=== PATIENT | female | born 1970 | race Caucasian/White ===

== ENCOUNTER 2019-01-02 00:38 | Outpatient (CLI) | payer BC, SELFPAY ==
--- NOTE | 2019-01-02 14:40 | DI.MAMMO_ITS ---
SYMPTOMS/DIAGNOSIS: SCREENING, Z12.31 MAMMOGRAMS: Mammograms were interpreted according to the usual protocol including computer analysis with CAD system, tomosynthesis and C view imaging. The breasts are heterogeneously dense. No dominant mass or clumped microcalcification is identified in either breast. Current examination is compared with the previous examinations including December 2017 and there has been no gross interval change in appearance in comparison with the previous studies. CONCLUSION: No specific evidence of malignancy at this time. Routine screening examinations are suggested at yearly intervals due to the family history of breast carcinoma. Category 1, breast density category C. MQSA ASSESSMENT OF FINDINGS: Negative. Category 1. Patient will receive a letter notifying them of these results. Bi-RADS category C. The breasts are heterogeneously dense, which may obscure small masses.
== END 2019-01-02 00:58 ==
PROVIDERS: PCP Family Medicine; Visit Provider Nurse Practitioner Family
DX: Z12.31 Encounter for screening mammogram for malignant neoplasm of breast (principal); Z80.3 Family history of malignant neoplasm of breast
CPT/HCPCS: 77063; 77067

== ENCOUNTER 2019-09-18 08:32 | Outpatient (REF) | payer BC, SELFPAY ==
[2019-09-18 13:31] LABS: ALT 15 U/L (14-59); AST 20 U/L (15-37); Albumin 3.3 g/dL (3.4-5.0); Alkaline Phosphatase 43 U/L (46-116); BUN 15 mg/dL (7-18); Bilirubin, Total 0.5 mg/dL (0.2-1.0); CREATININE 1.09 mg/dL (0.55-1.02); Calcium 8.7 mg/dL (8.5-10.1); Calculated LDL 126 mg/dL; Chloride 107 mmol/L (98-107); Cholesterol 173 mg/dL (<200); Estimated GFR 53.57 (mL/min/1.73m2); Glucose 96 mg/dL (74-106); HDL Cholesterol 36 mg/dL (40-60); Potassium 4.2 mmol/L (3.5-5.1); Sodium 143 mmol/L (136-145); Total Protein 6.8 g/dL (6.4-8.2); Triglyceride 59 mg/dL (<150)
== END 2019-09-18 08:52 ==
LOC: NCHCN 08:32
PROVIDERS: PCP Family Medicine; Visit Provider Family Medicine
DX: Z00.00 Encounter for general adult medical examination without abnormal findings (principal); Z13.220 Encounter for screening for lipoid disorders; Z13.228 Encounter for screening for other metabolic disorders
CPT/HCPCS: 80053; 80061

== ENCOUNTER 2020-10-05 10:11 | Outpatient (REF) | payer BC, SELFPAY ==
[2020-10-05 14:05] LABS: ALT 30 U/L (14-59); AST 18 U/L (15-37); Albumin 3.6 g/dL (3.4-5.0); Alkaline Phosphatase 33 U/L (46-116); Anion Gap 9.2 mmol/L (3-11); BUN 16 mg/dL (7-18); Bilirubin, Total 0.4 mg/dL (0.2-1.0); CO2 23.8 mmol/L (21.0-32.0); CREATININE 1.23 mg/dL (0.55-1.02); Calcium 8.7 mg/dL (8.5-10.1); Calculated LDL 138 mg/dL (<100); Chloride 105 mmol/L (98-107); Cholesterol 193 mg/dL (<200); Estimated GFR 46.41 (mL/min/1.73m2); Glucose 93 mg/dL (74-106); HDL Cholesterol 38 mg/dL (40-60); Potassium 4.3 mmol/L (3.5-5.1); Sodium 138 mmol/L (136-145); Total Protein 7.1 g/dL (6.4-8.2); Triglyceride 87 mg/dL (<150)
== END 2020-10-05 10:31 ==
LOC: NCHCN 10:11
PROVIDERS: PCP Family Medicine; Visit Provider Family Medicine
DX: Z00.00 Encounter for general adult medical examination without abnormal findings (principal)
CPT/HCPCS: 80053; 80061

== ENCOUNTER 2020-11-30 18:19 | Outpatient (REF) | payer BC, SELFPAY ==
[2020-11-30 21:53] LABS: BUN 12 mg/dL (7-18); CREATININE 1.1 mg/dL (0.55-1.02); Calcium 9.8 mg/dL (8.5-10.1); Chloride 106 mmol/L (98-107); Estimated GFR 52.79 (mL/min/1.73m2); Glucose 78 mg/dL (74-106); Sodium 143 mmol/L (136-145)
== END 2020-11-30 18:20 | disposition home or self-care (01) ==
LOC: NCHCN 18:19
PROVIDERS: PCP Family Medicine; Visit Provider Family Medicine
DX: R79.89 Other specified abnormal findings of blood chemistry (principal)
CPT/HCPCS: 80048

== ENCOUNTER 2020-12-04 19:32 | Emergency (ER) | payer BC, SELFPAY ==
[2020-12-04 19:37] VITALS: BP 122/65; PULSE 91; RESP 126; TEMP 36.3; O2SAT 98
--- NOTE | 2020-12-04 20:29 | W.ED.GENAD ---
Discharge Plan Disposition Patient Disposition: HOME Condition: Stable Discharge Details Clinical Impression: Knee pain Primary Care Provider: Tracy Brannon ED Provider: Sandip Hampton Home Meds and New Rx's Prescriptions: Continued omeprazole 20 mg capsule,delayed release(DR/EC) 20 mg PO DIRECTED RF: 0 diphenhydramine HCl [Benadryl Allergy] 25 mg tablet 25 mg PO QHS PRNRF: 0 norethindrone acetate 5 mg tablet 5 mg PO DAILY Qty: 90 RF: 3 fluoxetine 20 mg tablet 20 mg PO DAILY Qty: 90 RF: 3 cholecalciferol (vitamin D3) [Vitamin D3] 1,000 UNIT capsule 100 unit PO BID RF: 0 eszopiclone 2 mg tablet 2 mg PO QHS RF: 0 calcium citrate 200 mg (950 mg) Tablet 800 mg PO BID RF: 0 loratadine 10 mg Tablet 10 mg PO DAILY RF: 0 magnesium citrate 100 mg Tablet 200 mg PO BID RF: 0 Discharge Instructions Instructions: Knee Pain (ED) Additional Instructions: At this time we discussed x-ray and/or ultrasound, you have declined both. Instead I have placed you on the orthopedic list to help expedite outpatient orthopedic care. We discussed the MRI may be necessary for your ongoing symptoms and definitive diagnosis. In the meantime continue your current medications, resting, elevating, gentle stretching, cool compresses every 2 hours for 20 minutes. You already have crutches at home, wear the knee immobilizer as needed, advance activity as tolerated. Contact orthopedics tomorrow to discuss setting up outpatient appointment. Please watch for new or worsening symptoms and return to the ER for any concerns. Referrals: Bonifacio West MD [ [facility] STAFF PHYSICIAN] - Medical Decision Making 49-year-old female with chronic bilateral leg pain, followed by her primary care provider and chiropractor. She reports that just prior to arrival she was starting to bend down and felt a sudden pain. Patient has mild soft tissue posterior right knee discomfort along the medial aspect and slightly proximal. There is no erythema, warmth, swelling, examination is consistent with a negative Homans' sign. Her pulse in triage was 91, during my examination her heart rate was in the 80s. Respirations in triage documented an error at 126, respirations were 16. Extremely low suspicion for septic joint, erythema, acute bony abnormality, DVT, etc. Discussed options with patient. Patient declines x-ray right now and declines ultrasound set up for tomorrow morning. Patient states that she already has crutches. She already has medications for discomfort. She is willing to try a long-leg immobilizer. She reports that the long leg immobilizer is much more comfortable. Pain is worse with trying to bear weight. I will place her on the orthopedic list to help expedite outpatient orthopedic care. We discussed that in the setting of little suspicion for acute bony abnormality or DVT, for her acute on chronic pain, and outpatient MRI may be indicated. Patient was given strict return precautions. Otherwise she will contact the orthopedic office tomorrow to set up outpatient care. Medical Records Medical records reviewed: Yes I reviewed the patient's medical records. HPI General Mode of arrival: wheelchair. Date/Time Provider Initiated Documentation: 12/04/20 19:32. Limitations to Documentation: no limitations. Information obtained by: patient. HPI Narrative: This is a 49-year-old female who reports past medical history of sleep disorder, GERD, chronic bilateral leg pain. She states that she has been evaluated by her primary care provider, chiropractor, treated for low magnesium, bursitis, tendinitis, etc. Just prior to arrival patient was going to sit down and felt a sudden pain behind her right knee that traveled up her tendon into her hamstring. She states at the time the pain was severe, and she was unable to ambulate or fully extend her knee. Now the pain is mild at rest worse with movement or weightbearing, however she is able to fully extend her leg. She denies any chest pain, shortness of breath, history of DVT or PE, cough, redness-swelling of her lower extremities. The patient states that she already has crutches at home. She has never had an x-ray or an MRI of that knee. Denies numbness, tingling, weakness. Related Data Home Medications Medication Instructions Recorded Confirmed cholecalciferol (vitamin D3) 100 unit PO BID 12/12/17 12/04/20 [Vitamin D3] eszopiclone 2 mg tablet 2 mg PO QHS 09/28/19 12/04/20 diphenhydramine HCl 25 mg tablet 25 mg PO QHS PRN 01/22/20 12/04/20 fluoxetine 20 mg tablet 20 mg PO DAILY #90 tab-cap 01/22/20 12/04/20 norethindrone acetate 5 mg tablet 5 mg PO DAILY #90 tab 01/22/20 12/04/20 omeprazole 20 mg capsule,delayed 20 mg PO DIRECTED 01/22/20 12/04/20 release calcium citrate 800 mg PO BID 12/04/20 12/04/20 loratadine 10 mg PO DAILY 12/04/20 12/04/20 magnesium citrate 200 mg PO BID 12/04/20 12/04/20 Previous Rx's Medication Instructions Recorded fluoxetine 20 mg tablet 20 mg PO DAILY #90 tab-cap 01/22/20 norethindrone acetate 5 mg tablet 5 mg PO DAILY #90 tab 01/22/20 Allergies Allergy/AdvReac Type Severity Reaction Status Date / Time Sulfa (Sulfonamide Allergy Intermediate itching Verified 12/04/20 19:45 Antibiotics) General Stated Complaint: Orthopedic JOI: 3 Review of Systems Constitutional Constitutional: Denies fever(s) and Denies weakness Cardiovascular Cardiovascular: Denies chest pain and Denies dyspnea Respiratory Respiratory: Denies cough and Denies dyspnea Musculoskeletal Musculoskeletal: Denies deformity, Reports arthralgias, Denies joint swelling, Denies numbness and Denies tingling Integumentary/Breasts Skin/Breast: Denies rash Neurologic Neurologic: Denies numbness, Denies tingling and Denies weakness [facility] Medical History Family history of breast cancer 2012: BRCA 1&2 neg. History of endometrial hyperplasia 2014. Without atypia. Rx with daily norethindrone. History of seizures as a child PMS (premenstrual syndrome) (07/01/14) Sleep disturbance (12/12/17) Vulvar pruritus Family History Father , lymphoma at age 41. Personal history of malignant neoplasm lymphoma Maternal Aunt Breast cancer Paternal Aunt Breast cancer Breast and ovarian cancer. BRCA1 positive. 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 Aygestin for cycle control) History History 2 Para 2 Hx # Term Pregnancies Multiple births Hx # Pregnancies Ectopic pregnancies AB induced Hx Number of Living Children AB spontaneous Exam Const General: cooperative, healthy appearing, comfortable and no acute distress Orientation: alert and awake HENMT Head: normal to inspection, normocephalic and atraumatic Eyes General: appearance normal, both eyes and all related structures Conjunctivae: conjunctivae normal Sclera: sclerae normal Neck Neck: normal visual inspection, trachea midline and supple Resp Effort & Inspection: normal respiratory effort and able to speak in complete sentences Auscultation: clear to auscultation bilaterally Cardio Rate: regular rate Rhythm: regular rhythm Skin General skin exam: no rashes or lesions noted Neuro General: patient alert, patient awake, moves all extremities and no focal motor deficits Cognition: normal cognition Speech: speech normal Gait: antalgic Motor: muscle tone normal throughout Sensory Exam: no sensory deficits noted Extrem General: normal to inspection, full ROM, capillary refill normal, no pedal edema, no calf tenderness and other (Negative Homans' sign, right leg) Right lower extremity: normal to inspection, full ROM, normal capillary refill, no joint enlargement, knee Details: normal to inspection, tenderness (Mild posterior knee, lateral aspect and slightly proximal), normal ROM and knee ligament exam normal; no swelling, no ecchymosis, no crepitus, no deformity and no unusual warmth, lower leg Details: normal to inspection and no edema; no erythema, no tenderness, no palpable cords, no ecchymosis, no deformity and no unusual warmth, ankle Details: normal to inspection and no edema; no tenderness and no swelling and foot Details: normal capillary refill; no cyanosis and no edema Psych Appearance: grossly normal Mental Status: mental status grossly normal Course Vital Signs Vital signs: Vital Signs Temperature 36.3 C L 12/04/20 19:37 Pulse 91 H 12/04/20 19:37 Respiratory Rate 126 H 12/04/20 19:37 Blood Pressure 122/65 12/04/20 19:37 Pulse Oximetry 98 12/04/20 19:37 Temperature 36.3 C L 12/04/20 19:37 Temperature Source Skin 12/04/20 19:37 Pulse 91 H 12/04/20 19:37 Respiratory Rate 126 H 12/04/20 19:37 Respiratory Effort 12/04/20 19:50 Blood Pressure 122/65 12/04/20 19:37 Pulse Oximetry 98 12/04/20 19:37 Oxygen Delivery Method Room Air 12/04/20 19:37 Oxygen Flow Rate 0 12/04/20 19:37 Pain Level 3 12/04/20 19:41
== END 2020-12-04 20:35 | disposition home or self-care (01) ==
PROVIDERS: Emergency Provider Physician Assistant; PCP Family Medicine
DX: M25.561 Pain in right knee (principal)
CPT/HCPCS: 29505; 99283

== ENCOUNTER 2021-01-02 14:59 | Outpatient (CLI) | payer BC, SELFPAY ==
--- NOTE | 2021-01-02 14:15 | DI.RAD_ITS ---
EXAM: XR KNEE RT 4V AP,LAT,CRISTINE,PAT CLINICAL HISTORY: eval R knee pain, h/o arthritis. TECHNIQUE: 2D digital imaging was performed. COMPARISON: No exams were available for comparison FINDINGS: There is no evidence fracture. There does appear to be a joint effusion. There is also calcificatio n within the distal quadriceps tendon. There is moderate degenerative change in the medial compartme nt. Lateral compartment exhibits normal height. Mild degenerative changes the patellofemoral compar tment. Bone density normal. IMPRESSION: Degenerative change in the medial compartment. On the merchant's view there is also subtle calcifica tion in the lateral aspect of the patellofemoral compartment. There is also a joint effusion noted. Also calcification in the distal quadriceps. DATA REPOSITORY: RADIATION DOSE DELIVERED:
== END 2021-01-02 15:00 | disposition home or self-care (01) ==
LOC: DIORS 14:59
PROVIDERS: PCP Family Medicine; Referring Provider Family Medicine; Visit Provider Student in an Organized Health Care Education/Training Program
DX: M25.561 Pain in right knee (principal); M25.461 Effusion, right knee; M17.11 Unilateral primary osteoarthritis, right knee
CPT/HCPCS: 73564

== ENCOUNTER 2021-01-31 18:06 | Outpatient (REF) | payer BC, SELFPAY ==
--- NOTE | 2021-01-31 15:00 | PAPFT_PTH ---
PATIENT: Tanya Devine LOC: [facility]#:[id number] AGE/SX: 50/F ROOM: RE01/31/[address]: MARCIE NealP : 1970 BED: DIS: 01/31/2021 SPEC #: [id number] RECD: 01/31/21 18:20 STATUS: OSCAR REQ #: [id number] MANUEL: 01/31/21 15:[address]: Deyanira Whitley DEPT: [facility] Cytology RECD BY: Mariann Meza ENTERED: 01/31/21 18:20 SP TYPE: PAPFT OTHR DR: Tracy Brannon Tissues: 1 - CX/ENDOCX FOR PAP SMEARS Procedures: PAP THIN PREP/UVM Screening HPV DNA PROBE Comments: [id number]
== END 2021-01-31 18:07 | disposition home or self-care (01) ==
LOC: NCHCN 18:06
PROVIDERS: PCP Family Medicine; Visit Provider Nurse Practitioner Family
DX: Z12.4 Encounter for screening for malignant neoplasm of cervix (principal); Z11.51 Encounter for screening for human papillomavirus (HPV)
CPT/HCPCS: 88142; 87624

== ENCOUNTER 2021-02-16 01:26 | Outpatient (CLI) | payer BC, SELFPAY ==
--- NOTE | 2021-02-16 15:00 | DI.MAMMO_ITS ---
Exam(s) MAMMO SCREENING EXAM: MAMMO SCREENING CLINICAL HISTORY: screening TECHNIQUE: Bilateral full field digital CC and MLO mammographic images were obtained with 3D tomosyn thesis and utilizing computer aided detection (CAD). COMPARISON: Available for comparison. FINDINGS: Masses/Architectural Distortion: None seen. Microcalcifications: No suspicious pleomorphic-type are seen. Skin Thickening/Nipple Retraction: None. IMPRESSION: 1. No significant interval change with no specific features of malignancy noted. 2. Unless there is more urgent need, screening mammography is recommended, as per [place] guidelines. BI-RADS Category 1 - Negative Breast Density - Category C - Heterogeneously dense Breast density category C or D implies that the patient has dense breast tissue. Dense breast tissue is very common and is not abnormal but dense breast tissue can make it harder to find cancer on a ma mmogram. Also, dense breast tissue may increase their breast cancer risk. This information about the result of the mammogram report was provided to the patient to raise their awareness. Use this report when you speak with the patient about their risks for breast cancer, which includes their family hist ory. At that time, you may recommend for more screening tests (Ultrasound or MRI) as they might be us eful based on their risk. A negative radiographic report should not delay biopsy if a dominant or clinically suspicious mass is present. Up to ten percent of cancers are not identified on mammography. A negative report may reinforce clinical impression. Adenosis and dense breasts may obscure an underlying neoplasm. False positive reports average 6 to 10%. Patient will receive a letter notifying them of these results.
== END 2021-02-16 01:46 ==
PROVIDERS: PCP Family Medicine; Visit Provider Nurse Practitioner Family
DX: Z12.31 Encounter for screening mammogram for malignant neoplasm of breast (principal)
CPT/HCPCS: 77063; 77067

== ENCOUNTER 2021-04-05 09:51 | Outpatient (REF) | payer BC, SELFPAY ==
[2021-04-05 16:35] LABS: Anion Gap 6.9 mmol/L (3-11); BUN 17 mg/dL (7-18); CO2 29.1 mmol/L (21.0-32.0); CREATININE 1.1 mg/dL (0.55-1.02); Calcium 9.1 mg/dL (8.5-10.1); Chloride 106 mmol/L (98-107); Estimated GFR 52.58 (mL/min/1.73m2); Glucose 96 mg/dL (74-106); Potassium 4.2 mmol/L (3.5-5.1); Sodium 142 mmol/L (136-145)
== END 2021-04-05 09:52 | disposition home or self-care (01) ==
LOC: NCHCN 09:51
PROVIDERS: PCP Family Medicine; Visit Provider Family Medicine
DX: R79.89 Other specified abnormal findings of blood chemistry (principal); M25.50 Pain in unspecified joint
CPT/HCPCS: 80048

== ENCOUNTER 2021-11-23 16:31 | Outpatient (REF) | payer BC, SELFPAY ==
[2021-11-23 14:15] LABS: ALT 22 U/L (14-59); AST 20 U/L (15-37); Albumin 3.8 g/dL (3.4-5.0); Alkaline Phosphatase 54 U/L (46-116); Anion Gap 5.6 mmol/L (3-11); BUN 17 mg/dL (7-18); Bilirubin, Total 0.7 mg/dL (0.2-1.0); CO2 31.4 mmol/L (21.0-32.0); CREATININE 1.1 mg/dL (0.55-1.02); Calcium 9.4 mg/dL (8.5-10.1); Calculated LDL 156 mg/dL (<100); Chloride 103 mmol/L (98-107); Cholesterol 231 mg/dL (<200); Estimated GFR 52.58 (mL/min/1.73m2); Glucose 79 mg/dL (74-106); HDL Cholesterol 61 mg/dL (40-60); Potassium 4.5 mmol/L (3.5-5.1); Sodium 140 mmol/L (136-145); Total Protein 7.1 g/dL (6.4-8.2); Triglyceride 74 mg/dL (<150)
== END 2021-11-23 16:32 | disposition home or self-care (01) ==
LOC: NCHCN 16:31
PROVIDERS: PCP Family Medicine; Visit Provider Family Medicine
DX: R79.89 Other specified abnormal findings of blood chemistry (principal); Z00.00 Encounter for general adult medical examination without abnormal findings; M25.59 Pain in other specified joint
CPT/HCPCS: 80053; 80061

== ENCOUNTER → 2022-03-20 01:07 | Outpatient (CLI) | payer BC, SELFPAY ==
--- NOTE | 2022-03-20 15:15 | DI.MAMMO_ITS ---
Exam(s) MAMMO SCREENING EXAM: MAMMO SCREENING CLINICAL HISTORY: screening. TECHNIQUE: Bilateral full field digital CC and MLO mammographic images were obtained with 3D tomosyn thesis and utilizing computer aided detection (CAD). COMPARISON: Prior mammograms were reviewed, the most recent being February 2021. FINDINGS: Has been no significant change in the appearance and distribution of the fibroglandular tissue. No CAD designations. There are no new spiculated masses nor malignant appearing microcalcification groups. There is no significant architectural distortion nor skin thickening-retraction. IMPRESSION: No radiographic evidence of malignancy. BI-RADS Category 1 - Negative Breast Density - Category C - Heterogeneously dense Breast density Category C or D implies that the patient has dense breast tissue. Dense breast tissue can make it harder to find cancer on a mammogram. Dense breast tissue is also associated with an incr eased risk of breast cancer. This information about the result of the mammogram report was provided to the patient to raise their awareness. Use this report when you speak with the patient about their risks for breast cancer, which includes their family history. At that time, you may recommend additional screening tests (Ultrasoun d or MRI) as these tests may add significant information. A negative radiographic report should not delay biopsy if a dominant or clinically suspicious mass is present. Up to ten percent of cancers are not identified on mammography. A negative report may reinforce clinical impression. Adenosis and dense breasts may obscure an underlying neoplasm. False positive reports average 6 to 10%. Patient will receive a letter notifying them of these results.
== END ==
PROVIDERS: PCP Family Medicine; Visit Provider Nurse Practitioner Family
DX: Z12.31 Encounter for screening mammogram for malignant neoplasm of breast (principal)
CPT/HCPCS: 77063; 77067

== ENCOUNTER 2022-11-29 02:41 | Outpatient (CLI) | payer OTHER, SELFPAY ==
[2022-11-29 09:02] LABS: ALT 20 U/L (14-59); AST 18 U/L (15-37); Albumin 3.6 g/dL (3.4-5.0); Alkaline Phosphatase 61 U/L (46-116); Anion Gap 6.6 mmol/L (3-11); BUN 13 mg/dL (7-18); Bilirubin, Total 0.4 mg/dL (0.2-1.0); CO2 29.4 mmol/L (21.0-32.0); CREATININE 1.1 mg/dL (0.55-1.02); Calcium 8.8 mg/dL (8.5-10.1); Calculated LDL 128 mg/dL (<100); Chloride 107 mmol/L (98-107); Cholesterol 211 mg/dL (<200); Estimated GFR 60.84 (mL/min/1.73m2); Glucose 96 mg/dL (74-106); HDL Cholesterol 70 mg/dL (40-60); Potassium 3.8 mmol/L (3.5-5.1); Sodium 143 mmol/L (136-145); Total Protein 6.9 g/dL (6.4-8.2); Triglyceride 65 mg/dL (<150)
[2022-11-29 09:23] LABS: C-Reactive Protein < 0.05 mg/dL (0.0-0.3)
[2022-11-29 09:57] LABS: Vitamin D 25 Total 40.1 ng/mL (30-100)
== END 2022-11-29 02:42 | disposition home or self-care (01) ==
PROVIDERS: PCP Family Medicine; Visit Provider Family Medicine
DX: Z00.00 Encounter for general adult medical examination without abnormal findings (principal); K21.9 Gastro-esophageal reflux disease without esophagitis; Z13.220 Encounter for screening for lipoid disorders; Z13.21 Encounter for screening for nutritional disorder
CPT/HCPCS: 36415; 80053; 80061; 82306; 86140

== ENCOUNTER 2023-03-22 00:41 | Outpatient (CLI) | payer OTHER, SELFPAY ==
--- NOTE | 2023-03-22 12:02 | DI.MAMMO_ITS ---
Exam(s) MAMMO SCREENING EXAM: MAMMO SCREENING CLINICAL HISTORY: screening TECHNIQUE: Mammograms were interpreted according to the usual protocol including computer analysis w Authorly CAD system, tomosynthesis and C-view imaging. COMPARISON: 2013 through 2021 FINDINGS: The breasts are composed of heterogeneously dense fibroglandular densities, Breast Density category C . No suspicious masses or suspicious microcalcifications are seen. No skin thickening or abnormal axillary lymph nodes are seen. There has been no significant change from prior exams. IMPRESSION: BI-RADS Category 1, Negative mammogram. Yearly screening mammography is recommended. Breast Density Category C, heterogeneously Dense. The mammogram demonstrates the patient's breast tissue is dense. Dense breast tissue is very common a nd is not abnormal but dense breast tissue can make it harder to find cancer on a mammogram. Also, de nse breast tissue may increase breast cancer risk. This information about the result of the mammogram report was provided to the patient to raise their awareness. Use this report when you speak with the patient about their risks for breast cancer, which includes their family history. At that time, you may recommend additional screening tests (Ultrasound or MRI) as they might be useful based on their r isk. A negative radiographic report should not delay biopsy if a dominant or clinically suspicious mass is present. Up to ten percent of cancers are not identified on mammography. A negative report may reinforce clinical impression. Adenosis and dense breasts may obscure an underlying neoplasm. False positive reports average 6 to 10%.
== END 2023-03-22 01:01 ==
LOC: DI 00:42
PROVIDERS: PCP Family Medicine; Visit Provider Obstetrics & Gynecology
DX: Z12.39 Encounter for other screening for malignant neoplasm of breast (principal)
CPT/HCPCS: 77063; 77067

== ENCOUNTER 2023-08-02 10:05 | Day surgery (SDC) | payer OTHER, SELFPAY ==
--- NOTE | 2023-08-01 12:59 | PDOC.DSDIS_ITS ---
Date of service: 08/02/23 Time of Service: 11:46 Discharge Plan Disposition Patient Disposition: Home Condition: Good Discharge Details Reason For Visit: Colon cancer screening Attending Provider: Josee Mcmanus Primary Care Provider: Tracy Brannon Home Meds and New Rx's Prescriptions: Continued diphenhydramine HCl [Benadryl Allergy] 25 mg tablet 25 mg PO QHS PRN omeprazole 20 mg capsule,delayed release(DR/EC) 20 mg PO DIRECTED Rx Instructions: Patient states she is taking every other day. acetaminophen 500 mg capsule 500 mg PO Q6H PRN estradiol-norethindrone acet 0.5-0.1 mg tablet 1 tab PO DAILY Qty: 84 3RF magnesium oxide 250 mg magnesium tablet 250 mg PO BID calcium phosphate-vitamin D3 [Citracal-D3 Gummies] 250 mg-12.5 mcg (500 unit) tablet,chewable 1 tab PO DIRECTED eszopiclone 2 mg tablet 2 mg PO QHS naproxen 250 mg tablet 500 mg PO BID PRN loratadine 10 mg Tablet 10 mg PO DAILY Discontinued bisacodyl [Dulcolax (bisacodyl)] 5 mg tablet,delayed release (DR/EC) 5 mg PO ONCE Qty: 4 0RF Rx Instructions: Take per colonoscopy instructions provided by ordering providers office polyethylene glycol 3350 17 gram/dose powder 17 g PO ONCE Qty: 238 0RF Rx Instructions: Take per colonoscopy instructions provided by ordering providers office bisacodyl [Dulcolax (bisacodyl)] 5 mg tablet,delayed release (DR/EC) 5 mg PO ONCE Qty: 4 0RF Rx Instructions: Take per colonoscopy instructions provided by ordering providers office polyethylene glycol 3350 17 gram/dose powder 17 g PO ONCE Qty: 238 0RF Rx Instructions: Take per colonoscopy instructions provided by ordering providers office Discharge Instructions Additional Instructions: DSU Colonoscopy Post- Op Instructions Instructions for Everyone who is given Anesthesia: For your safety, please do the following for the next twenty-four (24) hours: *Do Not operate a motor vehicle (car, truck, motorcycle, etc.) *Do Not drink alcoholic beverages or use any recreational drugs for the first 24 hours or while taking pain medications. The medications in your body may have a reaction that can be dangerous. *Do Not make any important decisions or sign any important papers. Findings: X2 small polyps Follow up: My office will send you a letter in 2 to 3 weeks time with the results of the pathology and when we want to repeat the colonoscopy, most likely in 7 to 10 years time. 1. No lifting over 20 pounds or strenuous activity for the first 24 hours after your procedure. After 24 hours there are no restrictions on your activity but you may feel fatigued for a few days. 2. After you arrive home you may have a light meal and return to your normal diet as you can tolerate it without feeling sick to your stomach. 3. You may have a bloated, gaseous feeling in your belly (abdomen) after a colonoscopy. Passing gas and belching will help. Walking or lying down on your left side with your knees flexed may relieve the discomfort. Call the office at [phone] (Office) or [phone] (Hospital) right away if you notice any of the following: a.Vomiting of blood or ?coffee ground stools?. b.Rectal bleeding 1Tbsp, blood clots or continuous bleeding. c.Severe belly (abdominal) pain. d.A hard distended belly (abdomen) and an inability to pass gas. 4. Please don?t expect to have a normal BM (bowel movement) for 2-3 days after your procedure. 5. If there are questions regarding the findings of your procedure, please contact your doctor 6. If you are unable to contact your doctor with a problem, contact the hospital at [phone]. 7. Continue all your regular medications unless directed otherwise. I understand the above instructions and have no questions. Signature of Patient or Adult Escort Name of Responsible Adult Escort Signature of Nurse Date/Time Activity:: See above Diet:: See above Discharge Orders Discharge Orders: Discharge Order (Routine); Ordered 08/02/23 Ordered By: Josee Mcmanus DS: Diagnosis Discharge Diagnosis (1) Family history of breast cancer: (2) GERD (gastroesophageal reflux disease): (3) Screening for malignant neoplasm of colon performed: Status: Acute Asessment and Plan: The patient is seen and examined after their colonoscopy.? The patient has been able to pass gas.? They are not having abdominal pain.? They have been able to tolerate liquids and a snack.? They do not have any nausea or vomiting.? They are not having any chest pain or shortness of breath.??? They are not having any rectal bleeding. Their vital signs have been stable-see nursing notes. We discussed findings during their colonoscopy, and any biopsies that were done/polyps that were removed. The patient will be sent a letter with any biopsy results, and when to repeat the colonoscopy.-see discharge instructions. Patient was given explicit instructions to follow-up regarding colonoscopy-refer to discharge instructions.? We reviewed resumption of medications. Patient verbalized understanding and discharged in stable and satisfactory condition- See nursing notes. (4) Benign colon polyp: Status: Acute
--- NOTE | 2023-08-01 12:59 | W.COLOREPORT ---
Date of service: 08/02/23 Time of Service: 11:44 Colonoscopy Report Date of procedure: 08/02/23 Pre-op diagnosis general: Colon cancer screening Post-op diagnosis procedure note: other (Polyps) Surgeon: Josee Mcmanus Anesthesia Type: General:No Airway Estimated blood loss (mL): 2 Pathology: other Complications: None Disposition: same day Prep: Miralax/Dulcolax Retraction Time: 9 Procedure Description: After informed consent was obtained the patient was taken to the procedure room and placed in a left decubitous position. Monitors were applied and a time out was done. The patients name, date of , procedure, allergies to medications and metal in their body was reviewed. The patient was then sedated. Once sedated and comfortable a rectal exam was done. External exam was normal. Internal exam revealed a normal sphincter tone and no palpable masses. The scope was then introduced and retrofelexed. No internal hemorrhoids were identified. The scope was then advanced to the cecum without difficulty. The TI and appendiceal orifice were identified. The prep was BBPS 3 in all segments for a total of 9. The scope was then slowly retracted over 9 minutes back into the rectum. She had 2 small 0.5 cm polyps one was at 20 cm and one was at 80 cm. They are both removed with a cold biting forcep. All specimen is retrieved and no bleeding is noted. There are no AVMs or diverticula visualized today. The mucosa is pink and healthy with a normal vascular pattern. The scope was removed and the patient was woken up and taken back to Same day surgery in stable condition. The patient tolerated the procedure well and there were no immediate complications. Follow up: The patient should follow up in 7-10 years, path pending, unless they develop changes in bowel habits or other new gastrointestinal complaints.
[2023-08-02 10:30] VITALS: BP 115/80; PULSE 83; RESP 16; TEMP 36.5; O2SAT 95
[2023-08-02] MEDS: Lactated Ringers 1,000 ML 80 ML IV (10:51)
--- NOTE | 2023-08-02 11:07 | W.ANESPRE ---
General Info Date of Service Date Performed: 08/02/23 Height: 5 ft 6 in Weight: 73.5 kg Body Mass Index (BMI): 26.1 Surgical Procedure: Operation Date: 08/02/23 10:35 Proposed Procedure Side Surgeon edith Mcmanus, DO Meds Allergies and Home Medications Allergies Allergy/AdvReac Type Severity Reaction Status Date / Time Sulfa (Sulfonamide Allergy Intermediate itching Verified 08/02/23 10:24 Antibiotics) Home Medication Medication Instructions Recorded eszopiclone 2 mg tablet 2 mg PO QHS 09/28/19 diphenhydramine HCl 25 mg tablet 25 mg PO QHS PRN 01/22/20 (Benadryl Allergy) loratadine 10 mg tablet 10 mg PO DAILY 12/04/20 magnesium oxide 250 mg PO BID 01/02/21 omeprazole 20 mg capsule,delayed 20 mg PO DIRECTED 02/06/22 release acetaminophen 500 mg capsule 500 mg PO Q6H PRN 04/22/23 estradiol-norethindrone acet 0.5 1 tab PO DAILY #84 tabs 04/22/23 mg-0.1 mg tablet naproxen 250 mg tablet 500 mg PO BID PRN 07/11/23 calcium phosphate 250 mg-vit D3 1 tab PO DIRECTED 07/18/23 12.5 mcg (500 unit) chewable tablet (Citracal-D3 Gummies) Current Visit Medications: Current Medications Generic Name Dose Route Start Last Admin Trade Name Freq PRN Reason Stop Dose Admin Hyoscyamine Sulfate 0.125 mg 08/02/23 11:43 Hyoscyamine 0.125 Mg Sl/Oral/Chew SL 09/01/23 11:42 DIRECTED PRN Ringer's Solution 1,000 mls @ 80 mls/hr 08/02/23 06:00 08/02/23 10:51 IV 08/31/23 23:59 80 mls/hr INFUSION JIMMY Administration IV Miscellaneous Supplies 1 each 08/02/23 06:00 Iv Access IV 08/31/23 23:59 DIRECTED JIMMY Ondansetron HCl 4 mg 08/02/23 11:43 Ondansetron 4 Mg/2 Ml Vial IVP 09/01/23 11:42 Q4H PRN PRN Nausea / Vomiting Sodium Chloride 0 ml 08/02/23 06:00 Normal Saline Flush 10 Ml Syr IV 08/31/23 23:59 PRN PRN Sodium Chloride 0 ml 08/02/23 06:00 Normal Saline 10 Ml Vial IJ 08/31/23 23:59 DIRECTED PRN Sterile Water 0 ml 08/02/23 06:00 Water,Injection,Sterile 10 Ml Vial IJ 08/31/23 23:59 DIRECTED PRN PFSH Active Problems Active Problems: Problem Status Onset Code Screening for malignant neoplasm of colon performed Z12.11 Medical History Medical History Arthritis Postmenopausal HRT (hormone replacement therapy) Localized osteoarthritis of right knee Right hamstring muscle strain Polyarthralgia Itchy skin Foot pain Menopause Insomnia GERD (gastroesophageal reflux disease) Leg pain, left Family history of breast cancer Pat aunt with breast and ovarian cancer and BRCA 1 carrier. Pt tested 2012: BRCA 1&2 neg. Mat aunt and MGM with breast cancer in their 60s History of seizures as a child History of endometrial hyperplasia 2015:Without atypia. Rx with daily norethindrone 2018: normal endo bx. Stopped norethindrone January 2021 - no bleeding since Tobacco Smoking/Tobacco Use Status: Never Alcohol Alcohol Intake: current Alcohol intake frequency: holidays/special occasions only Substance Use Substance use: Never Substance use type: does not use Prental History History 2 Para 2 Hx # Term Pregnancies Multiple births Hx # Pregnancies Ectopic pregnancies AB induced Hx Number of Living Children 2 AB spontaneous Vital Signs and Lab Results Vital Signs Most Recent Vital Signs in EMR: Most Recent Vital Signs Temp Pulse Resp BP Pulse Ox 36.5 C 83 16 115/80 95 08/02/23 10:30 08/02/23 10:30 08/02/23 10:30 08/02/23 10:30 08/02/23 10:30 Lab Results Blood Type / Crossmatch: No Data to Display Complete Blood Count: No Data to Display Complete Metabolic Panel: No Data to Display Liver Function Panel: No Data to Display Coagulation Panel: No Data to Display Cardiac Panel: No Data to Display Arterial Blood Gas: No Data to Display Venous Blood Gas: No Data to Display Pancreas Panel: No Data to Display Thyroid Panel: No Data to Display Infectious Disease: No Data to Display Blood Cultures: No Data to Display Toxicology Panel: No Data to Display Panel: No Data to Display Anesthesia Assessment and Plan Anesthesia History Personal History: No History of Anesthesia Complications Family History: No Family History of Anesthesia Complications Exercise Tolerance Exercise Tolerance: Metabolic Equivalents>4 Pertinent Negatives Pertinent Negatives: No Symptoms of GERD Cardiac & Pulmonary Exam Cardiac Exam: Normal S1/S2 Heart Sounds Pulmonary Exam: Clear Bilateral Breath Sounds Implantable Cardiac Device Does patient have a Pacemaker or an ICD?: No Airway Exam Known Difficult Airway: No Mallampati Class: 2 Mouth Opening: Normal (> 3cm) Thyromental Distance: Greater than 3 cm Neck Range of Motion: Full ROM Neck Circumference: Normal Teeth Condition: Normal Dentition ASA Classification ASA Score: ASA 2 Emergency Case?: No NPO Status NPO Status: NPO Clears >2 hours, Solids >8 hours Status Status: Not Relevant due to Medical History Anesthesia Plan Resuscitation Status: Full Code Anesthesia Technique: General Anesthesia Airway Planned: Natural Airway Monitors Used: Standard Monitors
[2023-08-02 11:08] VITALS: BMI 26.1
--- NOTE | 2023-08-02 11:28 | BOWEL_PTH ---
PATIENT: Tanya Devine LOC: [facility] U#:[id number] AGE/SX: 52/F ROOM: RE08/02/[address]: Josee Mcmanus : 1970 BED: DIS: 08/02/2023 SPEC #: [id number] RECD: 08/02/23 17:15 STATUS: SOCAR REQ #: [id number] MANUEL: 08/02/23 11:[address]: Josee Mcmanus DEPT: Surgical Specimen RECD BY: Mariann Meza ENTERED: 08/02/23 17:16 SP TYPE: Bowel OTHR DR: Tracy Brannon Tissues: 1 - BIOPSY BOWEL 2 - BIOPSY BOWEL Procedures: GROSS AND MICRO LEVEL 4 Comments: [id number]
[2023-08-02 11:45] VITALS: BP 97/71; PULSE 79; RESP 16; TEMP 36.3; O2SAT 95
--- NOTE | 2023-08-02 11:49 | W.ANESPOSTOP ---
Postoperative Evaluation Date, Time and Location Date Performed: 08/02/23 Time Performed: 11:49 Patient Location: Day Surgery Unit Vital Signs Most Recent Imported Vital Signs: Most Recent Vital Signs Temp Pulse Resp BP Pulse Ox 36.5 C 83 16 115/80 95 08/02/23 10:30 08/02/23 10:30 08/02/23 10:30 08/02/23 10:30 08/02/23 10:30 Pain Score Most Recent Pain Score: Most Recent Pain Score Pain Level 0 08/02/23 10:30 Assessment Mental Status: Awake (Alert & Oriented to Patient Baseline) Airway and Respiratory Function: Patent airway with normal (patient baseline) respiratory exam Cardiovascular Function: Hemodynamically Stable Hydration Status: Adequately Hydrated Nausea & Vomiting: No Nausea or Vomiting Pain: Pt. Denies Any Pain Peripheral Nerve Block: Patient did not receive a nerve block
[2023-08-02 12:15] VITALS: BP 118/79; PULSE 66; RESP 18; TEMP 36.6; O2SAT 99
== END 2023-08-02 12:40 | disposition home or self-care (01) ==
PROVIDERS: PCP Family Medicine; Visit Provider Surgery
PROC: 0DJD8ZZ Inspection of Lower Intestinal Tract, Via Natural or Artificial Opening Endoscopic (ICD-10-PCS; CPT 45378; principal; 2023-08-02 10:30)
DX: Z12.11 Encounter for screening for malignant neoplasm of colon; K63.5 Polyp of colon
CPT/HCPCS: 45380; 88305

== ENCOUNTER 2023-12-05 05:46 | Outpatient (CLI) | payer OTHER, SELFPAY ==
[2023-12-05 12:07] LABS: ALT 18 U/L (14-59); AST 19 U/L (15-37); Albumin 3.8 g/dL (3.4-5.0); Alkaline Phosphatase 40 U/L (46-116); BUN 15 mg/dL (7-18); Bilirubin, Total 0.6 mg/dL (0.2-1.0); CREATININE 1.1 mg/dL (0.55-1.02); Calcium 8.8 mg/dL (8.5-10.1); Calculated LDL 137 mg/dL (<100); Chloride 106 mmol/L (98-107); Cholesterol 219 mg/dL (<200); Estimated GFR 60.46 (mL/min/1.73m2); Glucose 96 mg/dL (74-106); HDL Cholesterol 71 mg/dL (40-60); Potassium 3.6 mmol/L (3.5-5.1); Sodium 143 mmol/L (136-145); Total Protein 7.2 g/dL (6.4-8.2); Triglyceride 59 mg/dL (<150)
[2023-12-05 12:18] LABS: Vitamin D 25 Total 38.3 ng/mL (30-100)
== END 2023-12-05 05:47 | disposition home or self-care (01) ==
PROVIDERS: PCP Family Medicine; Visit Provider Family Medicine
DX: Z00.00 Encounter for general adult medical examination without abnormal findings (principal)
CPT/HCPCS: 36415; 80053; 80061; 82306

== ENCOUNTER → 2024-03-31 01:15 | Outpatient (CLI) | payer OTHER, SELFPAY ==
--- NOTE | 2024-03-31 10:54 | DI.RAD_ITS ---
Exam(s) XR ANKLE LT COMPLETE EXAM: XR ANKLE LT COMPLETE CLINICAL HISTORY: Left Ankle Pain,m25.572 TECHNIQUE: 2D digital imaging was performed. Three views. COMPARISON: No exams were available for comparison FINDINGS: BONES: No acute fracture is present. No bony destructive lesion is seen. Small heel spurs. Small s mall spur medial malleolus. JOINTS:The ankle mortise is normally aligned. The joint space is maintained. There is spurring at the tip of the medial malleolus as well as at the anterior distal tibia. SOFT TISSUE: Normal. IMPRESSION: Mild degenerative changes and small heel spurs. DATA REPOSITORY: RADIATION DOSE DELIVERED:
--- NOTE | 2024-03-31 10:54 | DI.RAD_ITS ---
Exam(s) XR FOOT LT COMPLETE EXAM: XR FOOT LT COMPLETE CLINICAL HISTORY: Left foot pain,m79.672. TECHNIQUE: 2D digital imaging was performed. Three views. COMPARISON: CR RIGHT FOOT COMPLETE from 06/18/2013 FINDINGS: BONES: No acute fracture is present. No bony destructive lesion is seen. JOINTS: No dislocation present. Mild narrowing of 1st MTP joint space. There is periarticular spur ring, greater dorsally. Degenerative changes also seen at the articulation of the sesamoids with the 1st metatarsal head. Accessory navicular. SOFT TISSUE: Normal. IMPRESSION: Degenerative changes of 1st MTP joint. DATA REPOSITORY: RADIATION DOSE DELIVERED:
== END ==
PROVIDERS: PCP Family Medicine; Visit Provider Podiatrist
DX: M25.572 Pain in left ankle and joints of left foot (principal); M79.672 Pain in left foot
CPT/HCPCS: 73610; 73630

== ENCOUNTER 2024-05-12 15:14 | Outpatient (REF) | payer OTHER, SELFPAY ==
--- NOTE | 2024-05-12 14:00 | PAPFT_PTH ---
PATIENT: Tanya Devine LOC: [facility] U#:[id number] AGE/SX: 53/F ROOM: RE05/12/[address]: Deidra Diaz MD : 1970 BED: DIS: 05/12/2024 SPEC #: [id number] RECD: 05/12/24 17:23 STATUS: OSCAR REQ #: [id number] MANUEL: 05/12/24 14:[address]: Deidra Diaz DEPT: [facility] Cytology RECD BY: Mariann Meza ENTERED: 05/12/24 17:23 SP TYPE: PAPFT OTHR DR: Tracy Brannon Tissues: 1 - CX/ENDOCX FOR PAP SMEARS Procedures: PAP THIN PREP/UVM Screening HPV DNA PROBE Comments: [id number] (HPV 16 & 18/45)
== END 2024-05-12 15:15 | disposition home or self-care (01) ==
LOC: LBN 15:14
PROVIDERS: PCP Family Medicine; Visit Provider Obstetrics & Gynecology
DX: Z12.31 Encounter for screening mammogram for malignant neoplasm of breast (principal); Z01.419 Encounter for gynecological examination (general) (routine) without abnormal findings; Z79.890 Hormone replacement therapy
CPT/HCPCS: 88142; 87624

== ENCOUNTER 2024-05-15 00:44 | Outpatient (CLI) | payer OTHER, SELFPAY ==
--- NOTE | 2024-05-15 12:45 | DI.MAMMO_ITS ---
Exam(s) MAMMO SCREENING EXAM: MAMMO SCREENING CLINICAL HISTORY: screening TECHNIQUE: Bilateral full field digital CC and MLO mammographic images were obtained with 3D tomosyn thesis and utilizing computer aided detection (CAD). COMPARISON: Available for comparison. FINDINGS: Masses/Architectural Distortion: None seen. Microcalcifications: No suspicious pleomorphic-type are seen. Skin Thickening/Nipple Retraction: None. IMPRESSION: 1. No significant interval change with no specific features of malignancy noted. 2. Unless there is more urgent need, screening mammography is recommended, as per [place] [employer] guidelines. BI-RADS Category 1 - Negative Breast Density - Category C - Heterogeneously dense Breast density category C or D implies that the patient has dense breast tissue. Dense breast tissue is very common and is not abnormal but dense breast tissue can make it harder to find cancer on a ma mmogram. Also, dense breast tissue may increase their breast cancer risk. This information about the result of the mammogram report was provided to the patient to raise their awareness. Use this report when you speak with the patient about their risks for breast cancer, which includes their family hist ory. At that time, you may recommend for more screening tests (Ultrasound or MRI) as they might be us eful based on their risk. A negative radiographic report should not delay biopsy if a dominant or clinically suspicious mass is present. Up to ten percent of cancers are not identified on mammography. A negative report may reinforce clinical impression. Adenosis and dense breasts may obscure an underlying neoplasm. False positive reports average 6 to 10%. Patient will receive a letter notifying them of these results.
== END 2024-05-15 01:04 ==
LOC: DI 00:44
PROVIDERS: PCP Family Medicine; Visit Provider Obstetrics & Gynecology
DX: Z12.31 Encounter for screening mammogram for malignant neoplasm of breast (principal)
CPT/HCPCS: 77063; 77067

== ENCOUNTER 2024-06-25 03:14 | Outpatient (CLI) | payer BC, SELFPAY ==
[2024-06-25 16:11] LABS: ALT 34 U/L (14-59); AST 26 U/L (15-37); Albumin 3.6 g/dL (3.4-5.0); Alkaline Phosphatase 50 U/L (46-116); Anion Gap 7.5 mmol/L (3-11); BUN 11 mg/dL (7-18); Bilirubin, Total 0.71 mg/dL (0.2-1.0); CO2 31.5 mmol/L (21.0-32.0); CREATININE 1.1 mg/dL (0.55-1.02); Calcium 9.2 mg/dL (8.5-10.1); Calculated LDL 47 mg/dL (<100); Chloride 106 mmol/L (98-107); Cholesterol 129 mg/dL (<200); Estimated GFR 60.08 (mL/min/1.73m2); Glucose 98 mg/dL (74-106); HDL Cholesterol 67 mg/dL (40-60); Potassium 3.5 mmol/L (3.5-5.1); Sodium 145 mmol/L (136-145); Triglyceride 75 mg/dL (<150)
== END 2024-06-25 03:15 | disposition home or self-care (01) ==
LOC: LBO 03:14
PROVIDERS: PCP Family Medicine; Visit Provider Family Medicine
DX: Z00.00 Encounter for general adult medical examination without abnormal findings (principal)
CPT/HCPCS: 36415; 80053; 80061; 82668; 81270

== ENCOUNTER 2024-06-27 14:28 | Outpatient (REF) | payer BC, SELFPAY | END 2024-06-27 14:29 | disposition home or self-care (01) | LOC: NCHCN 14:28 | PROVIDERS: PCP Family Medicine; Visit Provider Family Medicine | DX: R19.7 Diarrhea, unspecified (principal) | CPT/HCPCS: 87505; 87177 ==

== ENCOUNTER 2024-07-06 15:47 | Outpatient (CLI) | payer BC, SELFPAY ==
--- NOTE | 2024-07-06 14:30 | DI.RAD_ITS ---
Exam(s) XR HIP PELVIS ADULT BL EXAM: XR HIP PELVIS ADULT BL CLINICAL HISTORY: eval bilateral hip pain, l weakness. TECHNIQUE: 2D digital imaging was performed of the pelvis and bilateral hips. Three images were obt ained. AP pelvis and lateral views of both hips were obtained. COMPARISON: No exams were available for comparison FINDINGS: BONES: No acute fracture is present. No bony destructive lesion is seen. JOINTS: No dislocation present. Small spurs are seen at the acetabular rims bilaterally. The hip moni nts are otherwise well maintained. The sacroiliac joints and symphysis pubis are unremarkable. SOFT TISSUE: Normal. IMPRESSION: Minimal degenerative changes of the hips, right greater than left. DATA REPOSITORY: RADIATION DOSE DELIVERED:
== END 2024-07-06 15:48 | disposition home or self-care (01) ==
LOC: DIORS 15:47
PROVIDERS: PCP Family Medicine; Visit Provider Student in an Organized Health Care Education/Training Program
DX: M25.551 Pain in right hip (principal); M25.552 Pain in left hip
CPT/HCPCS: 73521

== ENCOUNTER 2024-07-28 12:41 | Outpatient (REF) | payer BC, SELFPAY ==
[2024-07-29 10:57] LABS: Campylobacter PCR Negative (Negative); Salmonella PCR Negative (Negative); Shiga Toxin PCR Negative (Negative); Shigella/Enteroinvasive Ecoli Negative (Negative)
== END 2024-07-28 12:42 | disposition home or self-care (01) ==
LOC: NCHCN 12:41
PROVIDERS: PCP Family Medicine; Visit Provider Nurse Practitioner Family
DX: R19.7 Diarrhea, unspecified (principal)
CPT/HCPCS: 87505; 87177

== ENCOUNTER 2024-10-22 07:54 | Emergency (ER) | payer BC, SELFPAY ==
[2024-10-22 07:59] VITALS: BP 120/79; PULSE 104; RESP 15; TEMP 36.8; O2SAT 97
[2024-10-22 08:04] VITALS: BP 120/79; PULSE 104; RESP 15; O2SAT 97
--- NOTE | 2024-10-22 08:15 | DI.RAD_ITS ---
Exam(s) XR FOOT LT COMPLETE EXAM: XR FOOT LT COMPLETE CLINICAL HISTORY: trauma, pain bruising 4-5 metatarsal. TECHNIQUE: 2D digital imaging was performed. Three views. COMPARISON: CR XR FOOT LT COMPLETE from 03/31/2024 FINDINGS: BONES: Comminuted fracture of the mid mid to distal shaft of the 5th metatarsal. Some displacement a nd mild angulation. No additional fractures.. No bony destructive lesion is seen. Small plantar c alcaneal spur. Accessory navicular. JOINTS: No dislocation present. Ghnn-he-eauwozfn degenerative changes at the 1st MTP joint. SOFT TISSUE: Normal. IMPRESSION: Comminuted 5th metatarsal fracture. DATA REPOSITORY: RADIATION DOSE DELIVERED:
--- NOTE | 2024-10-22 08:26 | ED.GENADUL_ITS ---
Discharge Plan Disposition Patient Disposition: Home Condition: Stable Discharge Details Clinical Impression: Foot fracture, left, Influenza A Primary Care Provider: Tracy Brannon ED Provider: Daysi Davenport Home Meds and New Rx's Prescriptions: New oseltamivir [Tamiflu] 75 mg capsule 75 mg PO BID 5 Days Qty: 10 0RF Continued acetaminophen 500 mg capsule 500 mg PO Q6H PRN cetirizine [Zyrtec] 10 mg tablet 10 mg PO DAILY PRN diphenhydramine HCl [Benadryl Allergy] 25 mg tablet 25 mg PO QHS PRN magnesium oxide 250 mg magnesium tablet 250 mg PO BID atorvastatin 20 mg tablet 20 mg PO DAILY calcium citrate-vitamin D3 [Citracal Regular] 250 mg-5 mcg (200 unit) tablet 1 tab PO DAILY estradiol-norethindrone acet 0.5-0.1 mg tablet 1 tab PO DAILY Qty: 84 3RF omeprazole 10 mg capsule,delayed release(DR/EC) 20 mg PO .QOD loratadine [Allergy Relief (loratadine)] 10 mg tablet 10 mg PO DAILY PRN eszopiclone 2 mg tablet 2 mg PO QHS naproxen 250 mg tablet 500 mg PO BID PRN Discharge Instructions Instructions: Flu, Walking Boot, Foot Fracture ED Additional Instructions: Can use acetaminophen and/or ibuprofen as directed for pain Wear walking boot as instructed Push fluids to stay well-hydrated drinking at least 6 to 8 glasses water daily or more Referrals: Tracy Brannon [Primary Care Provider] - Bonifacio West MD [ [facility] STAFF PHYSICIAN] - HPI General Mode of arrival: ambulatory . Date/Time Provider Initiated Documentation: 10/22/24 08:12 . Limitations to Documentation: no limitations . Information obtained by: patient . HPI Narrative: This is a 53-year-old female patient past medical history significant for recent wisdom tooth extraction on Saturday. She also reports a viral-like upper respiratory illness with nasal congestion cough body aches that she has had also since Saturday. She denies any complications with her dental extraction but this morning when she went to go feed her cats she felt lightheaded and fell injuring her left foot. she states she needed to sit for a while on the ground to let her blurred vision resolve, she got up and her vision was blurry again and she fell again, this time no injury. she denies hitting her head, has no neck pain. she has had a productive cough with clear sputum, no shortness of breath or chest pain. she state she had a clot dislodge from the tooth but no further bleeding. she presents for evaluation of her blurred vision episode and left foot pain. Related Data Home Medications ?Medication ?Instructions ?Recorded ?Confirmed eszopiclone 2 mg tablet 2 mg PO QHS 09/28/19 10/22/24 magnesium oxide 250 mg PO BID 01/02/21 10/22/24 acetaminophen 500 mg capsule 500 mg PO Q6H PRN 04/22/23 10/22/24 naproxen 250 mg tablet 500 mg PO BID PRN 07/11/23 10/22/24 cetirizine 10 mg tablet (Zyrtec) 10 mg PO DAILY PRN 04/17/24 10/22/24 atorvastatin 20 mg tablet 20 mg PO DAILY 04/28/24 10/22/24 calcium 250 mg (as 1 tab PO DAILY 05/12/24 10/22/24 citrate)-vitamin D3 5 mcg (200 unit) tablet (Citracal Regular) estradiol-norethindrone acet 0.5 1 tab PO DAILY #84 tabs 05/12/24 10/22/24 mg-0.1 mg tablet diphenhydramine HCl 25 mg tablet 25 mg PO QHS PRN 06/02/24 10/22/24 (Benadryl Allergy) loratadine 10 mg tablet (Allergy 10 mg PO DAILY PRN 07/09/24 10/22/24 Relief (loratadine)) omeprazole 10 mg capsule,delayed 20 mg PO .QOD 07/09/24 10/22/24 release oseltamivir 75 mg capsule (Tamiflu) 75 mg PO BID 5 days #10 caps 10/22/24 Previous Rx's ?Medication ?Instructions ?Recorded estradiol-norethindrone acet 0.5 1 tab PO DAILY #84 tabs 05/12/24 mg-0.1 mg tablet oseltamivir 75 mg capsule (Tamiflu) 75 mg PO BID 5 days #10 caps 10/22/24 Allergies Allergy/AdvReac Type Severity Reaction Status Date / Time house dust mite Allergy Intermediate nasal Verified 10/22/24 08:04 Sulfa (Sulfonamide Allergy Intermediate itching Verified 10/22/24 08:04 Antibiotics) cat dander Allergy Other (See Verified 10/22/24 08:04 Comment) dog dander Allergy Other (See Verified 10/22/24 08:04 Comment) grass pollen Allergy Other (See Verified 10/22/24 08:04 Comment) tree and shrub pollen Allergy Other (See Verified 10/22/24 08:04 Comment) General Stated Complaint: GenMedical JOI: 3 Review of Systems All systems reviewed & are unremarkable except as noted in HPI and below Exam Narrative Exam Narrative: Well-appearing female of stated age no acute distress head is atraumatic eyes nonicteric noninjected EOMs intact no nystagmus appreciated oral mucosas moist dental extraction site clear with no evidence of bleeding. There is some swelling but no erythema. Neck full range of motion no cervical spine tenderness on palpation respirations even and unlabored breath sounds are clear bilaterally with no wheezing or coarse breath sounds noted cardiovascular regular rate and rhythm tachycardic in the low 100s abdomen benign moves all extremities no peripheral edema bruising to lateral aspect of left foot tenderness over fourth and fifth metatarsal. Ankle with no swelling or tenderness on palpation full range of motion strong pedal pulse foot cool to touch but she has been applying ice Course Vital Signs Vital signs: Vital Signs Temperature 36.8 C 10/22/24 07:59 Pulse 104 H 10/22/24 07:59 Respiratory Rate 15 10/22/24 07:59 Blood Pressure 120/79 10/22/24 07:59 Pulse Oximetry 97 10/22/24 07:59 Temperature 36.8 C 10/22/24 07:59 Temperature Source Tympanic 10/22/24 07:59 Pulse 104 H 10/22/24 08:04 Respiratory Rate 15 10/22/24 08:04 Blood Pressure 120/79 10/22/24 08:04 Pulse Oximetry 97 10/22/24 08:04 Pain Level 7 10/22/24 08:04 Medical Decision Making This is a 53-year-old female patient presents for evaluation of left foot pain following a fall at home while feeding her cats bent over felt lightheaded and dropped to the ground. She did not hit her head. She also has had symptoms of upper respiratory illness. Rapid COVID flu swab is positive for influenza A. She was given 1 L of normal saline. Hemodynamically she has remained stable while being monitored in the emergency department. X-ray of her foot does show a displaced fifth metatarsal fracture. She is being placed in a walking boot we will follow-up with orthopedics outpatient. Labs reviewed and unremarkable. She is feeling improved and stable for discharge to home. She will follow-up with her oral surgeon as scheduled call sooner for new or worsening symptoms scheduled follow-up with orthopedics. PCP as needed Imaging Data Radiologic Study: Imaging: X-Ray Radiologist's impression: EXAM: XR FOOT LT COMPLETE CLINICAL HISTORY: trauma, pain bruising 4-5 metatarsal. TECHNIQUE: 2D digital imaging was performed. Three views. COMPARISON: CR XR FOOT LT COMPLETE from 03/31/2024 FINDINGS: BONES: Comminuted fracture of the mid mid to distal shaft of the 5th metatarsal. Some displacement and mild angulation. No additional fractures.. No bony destructive lesion is seen. Small plantar calcaneal spur. Accessory navicular. JOINTS: No dislocation present. Crow-[id number]-[id number] degenerative changes at the 1st MTP joint. SOFT TISSUE: Normal. IMPRESSION: Comminuted 5th metatarsal fracture. Lab Data Lab results reviewed: Yes I reviewed the patient's lab results. Lab results narrative: Laboratory Tests Range/Units 10/22/24 08:45 WBC (4.4-10.8) 10^3/uL 3.74 L RBC (3.93-5.22) 10^6/uL 4.53 Hgb (11.2-15.7) g/dL 13.3 Hct (36.0-46.0) % 41.6 MCV (80-95) fL 92 MCH (27.0-33.0) pg 29.4 MCHC (32.0-36.0) % 32.0 RDW (11.7-14.6) % 13.1 Plt Count (130-400) 10^3/uL 142 MPV (8.0-11.0) fL 10.4 Immature Gran % % 0.3 Neutrophils % % 68.0 Lymphocytes % % 15.2 Monocytes % % 12.0 Eosinophils % % 4.0 Basophils % % 0.5 Nucleated RBC % (0.0-0.3) % 0.0 Absolute Neutrophils (1.2-6.7) 10^3/uL 2.54 Absolute Lymphocytes (1.2-3.4) 10^3/uL 0.57 L Absolute Monocytes (0.1-0.8) 10^3/uL 0.45 Absolute Eosinophils (0.0-0.7) 10^3/uL 0.15 Absolute Basophils (0.0-0.2) 10^3/uL 0.02 Sodium (136-145) mmol/L 144 Potassium (3.5-5.1) mmol/L 4.0 Chloride (98-107) mmol/L 107 Carbon Dioxide (21.0-32.0) mmol/L 31.6 Anion Gap (3-11) mmol/L 5.4 BUN (7-18) mg/dL 8 Creatinine (0.55-1.02) mg/dL 1.1 H Est GFR (CKD-EPI 2020) (mL/min/1.73m2) 60.08 Glucose (74-106) mg/dL 86 Calcium (8.5-10.1) mg/dL 8.8 Quality:SDOH Health Related Social Needs: No Data to Display PFSH All Active Problems (Updated 10/22/24 @ 09:37 by Daysi Davenport NP) Influenza A (Acute) Foot fracture, left (Acute) Femoral acetabular impingement (Acute) Bilateral hip pain (Acute) Acquired leg length discrepancy (Acute) Hip instability (Acute) Posterior tibial tendinitis of left leg (Acute) Plantar fasciitis (Acute) Pain in left foot (Acute) Food allergy (Acute) Multiple environmental allergies (Acute) Itchy skin (Acute) Benign colon polyp (Acute ~07/2023) hyperplastic Screening for malignant neoplasm of colon performed (Acute) Medical History Bite or sting by insect with infection Other specified abnormal findings of blood chemistry Joint pain Arthritis Postmenopausal HRT (hormone replacement therapy) Localized osteoarthritis of right knee Right hamstring muscle strain Polyarthralgia Foot pain Insomnia GERD (gastroesophageal reflux disease) Leg pain, left Family history of breast cancer Pat aunt with breast and ovarian cancer and BRCA 1 carrier. Pt tested 2011: BRCA 1&2 neg. Mat aunt and MGM with breast cancer in their 60s History of seizures as a child History of endometrial hyperplasia 2015:Without atypia. Rx with daily norethindrone 2017: normal endo bx. Stopped norethindrone January 2021 - no bleeding since Surgical History History of colonoscopy (~07/2023) Family History Father , lymphoma at age 41. Personal history of malignant neoplasm lymphoma Maternal Aunt Breast cancer Paternal Aunt Breast cancer Breast and ovarian cancer. BRCA1 positive. Maternal Grandmother Breast cancer Postmenopausal breast cancer Social History Smoking/Tobacco Use Status: Never Smoking risk assessment performed?: Yes Alcohol Intake: current Alcohol Intake frequency: holidays/special occasions only Drug use: Never Substance use type: does not use Household members: spouse and other Details: 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
[2024-10-22] MEDS: Normal Saline 1,000 ML 1000 ML IV (08:45)
[2024-10-22 08:53] LABS: Abs Immature Grans 0.01 10^3/uL (0.0-0.06); Absolute Basophil Count 0.02 10^3/uL (0.0-0.2); Absolute Eosinophil Count 0.15 10^3/uL (0.0-0.7); Absolute Lymphocyte Count 0.57 10^3/uL (1.2-3.4); Absolute Monocyte Count 0.45 10^3/uL (0.1-0.8); Absolute Neutrophil Count 2.54 10^3/uL (1.2-6.7); Basophils % 0.5 %; HCT 41.6 % (36.0-46.0); HGB 13.3 g/dL (11.2-15.7); Immature Grans % 0.3 %; Lymphocytes % 15.2 %; MCH 29.4 pg (27.0-33.0); MCV 92 fL (80-95); MPV 10.4 fL (8.0-11.0); Platelet Count 142 10^3/uL (130-400); RBC 4.53 10^6/uL (3.93-5.22); RDW 13.1 % (11.7-14.6); WBC 3.74 10^3/uL (4.4-10.8)
[2024-10-22 09:10] LABS: Anion Gap 5.4 mmol/L (3-11); BUN 8 mg/dL (7-18); CO2 31.6 mmol/L (21.0-32.0); CREATININE 1.1 mg/dL (0.55-1.02); Calcium 8.8 mg/dL (8.5-10.1); Chloride 107 mmol/L (98-107); Estimated GFR 60.08 (mL/min/1.73m2); Glucose 86 mg/dL (74-106); Sodium 144 mmol/L (136-145)
--- NOTE | 2024-10-22 09:44 | W.ED.GENAD ---
Discharge Plan Disposition Patient Disposition: Home Condition: Stable Discharge Details Clinical Impression: Foot fracture, left, Influenza A Primary Care Provider: Tracy Brannon ED Provider: Daysi Davenport Home Meds and New Rx's Prescriptions: New oseltamivir [Tamiflu] 75 mg capsule 75 mg PO BID 5 Days Qty: 10 0RF Continued acetaminophen 500 mg capsule 500 mg PO Q6H PRN cetirizine [Zyrtec] 10 mg tablet 10 mg PO DAILY PRN diphenhydramine HCl [Benadryl Allergy] 25 mg tablet 25 mg PO QHS PRN magnesium oxide 250 mg magnesium tablet 250 mg PO BID atorvastatin 20 mg tablet 20 mg PO DAILY calcium citrate-vitamin D3 [Citracal Regular] 250 mg-5 mcg (200 unit) tablet 1 tab PO DAILY estradiol-norethindrone acet 0.5-0.1 mg tablet 1 tab PO DAILY Qty: 84 3RF omeprazole 10 mg capsule,delayed release(DR/EC) 20 mg PO .QOD loratadine [Allergy Relief (loratadine)] 10 mg tablet 10 mg PO DAILY PRN eszopiclone 2 mg tablet 2 mg PO QHS naproxen 250 mg tablet 500 mg PO BID PRN Discharge Instructions Instructions: Flu, Walking Boot, Foot Fracture ED Additional Instructions: Can use acetaminophen and/or ibuprofen as directed for pain Wear walking boot as instructed Push fluids to stay well-hydrated drinking at least 6 to 8 glasses water daily or more Referrals: Tracy Brannon [Primary Care Provider] - Bonifacio West MD [ [facility] STAFF PHYSICIAN] - Discharge Data Discharge Date/Time-TO BE ENTERED AT DEPARTURE: 10/22/24 09:55 HPI General Mode of arrival: ambulatory. Date/Time Provider Initiated Documentation: 10/22/24 08:12. Limitations to Documentation: no limitations. Information obtained by: patient. HPI Narrative: This is a 53-year-old female patient presents to the emergency department for evaluation of symptoms of lightheadedness with fall resulting in left foot pain. She had a wisdom tooth extracted on Saturday. Also on that same day started with upper respiratory viral illness symptoms including cough nasal congestion chills. Oral intake has been decreased secondary to her symptoms. She states today she got up and was while feeding her cats became unsteady with blurred vision and falling down to the ground. No head injury no neck pain no other injury noted other than left foot pain. She does have bruising. She has been iced. Denies any similar history she has had no chest pain or shortness of breath. No neurologic deficits or other symptoms. Related Data Home Medications ?Medication ?Instructions ?Recorded ?Confirmed eszopiclone 2 mg tablet 2 mg PO QHS 09/28/19 10/22/24 magnesium oxide 250 mg PO BID 01/02/21 10/22/24 acetaminophen 500 mg capsule 500 mg PO Q6H PRN 04/22/23 10/22/24 naproxen 250 mg tablet 500 mg PO BID PRN 07/11/23 10/22/24 cetirizine 10 mg tablet (Zyrtec) 10 mg PO DAILY PRN 04/17/24 10/22/24 atorvastatin 20 mg tablet 20 mg PO DAILY 04/28/24 10/22/24 calcium 250 mg (as 1 tab PO DAILY 05/12/24 10/22/24 citrate)-vitamin D3 5 mcg (200 unit) tablet (Citracal Regular) estradiol-norethindrone acet 0.5 1 tab PO DAILY #84 tabs 05/12/24 10/22/24 mg-0.1 mg tablet diphenhydramine HCl 25 mg tablet 25 mg PO QHS PRN 06/02/24 10/22/24 (Benadryl Allergy) loratadine 10 mg tablet (Allergy 10 mg PO DAILY PRN 07/09/24 10/22/24 Relief (loratadine)) omeprazole 10 mg capsule,delayed 20 mg PO .QOD 07/09/24 10/22/24 release oseltamivir 75 mg capsule (Tamiflu) 75 mg PO BID 5 days #10 caps 10/22/24 Previous Rx's ?Medication ?Instructions ?Recorded estradiol-norethindrone acet 0.5 1 tab PO DAILY #84 tabs 05/12/24 mg-0.1 mg tablet oseltamivir 75 mg capsule (Tamiflu) 75 mg PO BID 5 days #10 caps 10/22/24 Allergies Allergy/AdvReac Type Severity Reaction Status Date / Time house dust mite Allergy Intermediate nasal Verified 10/22/24 08:04 Sulfa (Sulfonamide Allergy Intermediate itching Verified 10/22/24 08:04 Antibiotics) cat dander Allergy Other (See Verified 10/22/24 08:04 Comment) dog dander Allergy Other (See Verified 10/22/24 08:04 Comment) grass pollen Allergy Other (See Verified 10/22/24 08:04 Comment) tree and shrub pollen Allergy Other (See Verified 10/22/24 08:04 Comment) General Stated Complaint: GenMedical JOI: 3 Review of Systems All systems reviewed & are unremarkable except as noted in HPI and below Exam Const General: cooperative, comfortable and no acute distress Nutritional Appearance: average body habitus Orientation: alert and awake [facility] Head: normal to inspection, normocephalic and atraumatic Mouth: oral mucosae normal Eyes General: appearance normal, both eyes and all related structures Neck Other: Anterior cervical adenopathy. Tender to palpation Chest Chest: normal inspection of the chest Resp Effort & Inspection: normal respiratory effort Auscultation: clear to auscultation bilaterally Cardio Rate: regular rate Rhythm: regular rhythm GI Inspection: normal to inspection Extrem Left lower extremity: foot Details: tenderness and ecchymosis (Lateral aspect over fourth fifth metatarsal) Course Vital Signs Vital signs: Vital Signs Temperature 36.8 C 10/22/24 07:59 Pulse 104 H 10/22/24 07:59 Respiratory Rate 15 10/22/24 07:59 Blood Pressure 120/79 10/22/24 07:59 Pulse Oximetry 97 10/22/24 07:59 Temperature 36.8 C 10/22/24 07:59 Temperature Source Tympanic 10/22/24 07:59 Pulse 104 H 10/22/24 08:04 Respiratory Rate 15 10/22/24 08:04 Blood Pressure 120/79 10/22/24 08:04 Pulse Oximetry 97 10/22/24 08:04 Pain Level 7 10/22/24 08:04 Lab/Test Results Lab/Test Results: Laboratory Tests Range/Units 10/22/24 08:45 WBC (4.4-10.8) 10^3/uL 3.74 L RBC (3.93-5.22) 10^6/uL 4.53 Hgb (11.2-15.7) g/dL 13.3 Hct (36.0-46.0) % 41.6 MCV (80-95) fL 92 MCH (27.0-33.0) pg 29.4 MCHC (32.0-36.0) % 32.0 RDW (11.7-14.6) % 13.1 Plt Count (130-400) 10^3/uL 142 MPV (8.0-11.0) fL 10.4 Immature Gran % % 0.3 Neutrophils % % 68.0 Lymphocytes % % 15.2 Monocytes % % 12.0 Eosinophils % % 4.0 Basophils % % 0.5 Nucleated RBC % (0.0-0.3) % 0.0 Absolute Neutrophils (1.2-6.7) 10^3/uL 2.54 Absolute Lymphocytes (1.2-3.4) 10^3/uL 0.57 L Absolute Monocytes (0.1-0.8) 10^3/uL 0.45 Absolute Eosinophils (0.0-0.7) 10^3/uL 0.15 Absolute Basophils (0.0-0.2) 10^3/uL 0.02 Sodium (136-145) mmol/L 144 Potassium (3.5-5.1) mmol/L 4.0 Chloride (98-107) mmol/L 107 Carbon Dioxide (21.0-32.0) mmol/L 31.6 Anion Gap (3-11) mmol/L 5.4 BUN (7-18) mg/dL 8 Creatinine (0.55-1.02) mg/dL 1.1 H Est GFR (CKD-EPI 2020) (mL/min/1.73m2) 60.08 Glucose (74-106) mg/dL 86 Calcium (8.5-10.1) mg/dL 8.8 Medical Decision Making Patient presents for evaluation of left foot pain and lightheadedness with blurred vision after position change. She has been experiencing upper viral respiratory symptoms. She just had her wisdom tooth pulled. She states that a clot from the extraction site released today which she experienced nausea with. She went to feed her cats and while changing position said that she felt blurred vision and fell down to the ground. She denied loss of consciousness. Given 1 L of normal saline with routine labs sent. Vital signs are stable while being monitored in the emergency department. Foot x-ray is positive for displaced fifth metatarsal fracture. She was placed in a walking boot referral to orthopedics. Influenza A+. Discussed Tamiflu which she would like to initiate she has only had her symptoms for 2 days. She has remained stable while being monitored in the emergency department. No further reoccurrence of her symptoms. She is stable for discharge to home with outpatient follow-up advised to return sooner for new or worsening symptoms Medical Records Medical records reviewed: Yes I reviewed the patient's medical records. Imaging Data Radiologic Study: Radiologist's impression: Exam(s) XR FOOT LT COMPLETE EXAM: XR FOOT LT COMPLETE CLINICAL HISTORY: trauma, pain bruising 4-5 metatarsal. TECHNIQUE: 2D digital imaging was performed. Three views. COMPARISON: CR XR FOOT LT COMPLETE from 03/31/2024 FINDINGS: BONES: Comminuted fracture of the mid mid to distal shaft of the 5th metatarsal. Some displacement and mild angulation. No additional fractures.. No bony destructive lesion is seen. Small plantar calcaneal spur. Accessory navicular. JOINTS: No dislocation present. [id number] degenerative changes at the 1st MTP joint. SOFT TISSUE: Normal. IMPRESSION: Comminuted 5th metatarsal fracture. Lab Data Lab results reviewed: Yes I reviewed the patient's lab results. Lab results narrative: Influenza A positive Laboratory Tests Range/Units 10/22/24 08:45 WBC (4.4-10.8) 10^3/uL 3.74 L RBC (3.93-5.22) 10^6/uL 4.53 Hgb (11.2-15.7) g/dL 13.3 Hct (36.0-46.0) % 41.6 MCV (80-95) fL 92 MCH (27.0-33.0) pg 29.4 MCHC (32.0-36.0) % 32.0 RDW (11.7-14.6) % 13.1 Plt Count (130-400) 10^3/uL 142 MPV (8.0-11.0) fL 10.4 Immature Gran % % 0.3 Neutrophils % % 68.0 Lymphocytes % % 15.2 Monocytes % % 12.0 Eosinophils % % 4.0 Basophils % % 0.5 Nucleated RBC % (0.0-0.3) % 0.0 Absolute Neutrophils (1.2-6.7) 10^3/uL 2.54 Absolute Lymphocytes (1.2-3.4) 10^3/uL 0.57 L Absolute Monocytes (0.1-0.8) 10^3/uL 0.45 Absolute Eosinophils (0.0-0.7) 10^3/uL 0.15 Absolute Basophils (0.0-0.2) 10^3/uL 0.02 Sodium (136-145) mmol/L 144 Potassium (3.5-5.1) mmol/L 4.0 Chloride (98-107) mmol/L 107 Carbon Dioxide (21.0-32.0) mmol/L 31.6 Anion Gap (3-11) mmol/L 5.4 BUN (7-18) mg/dL 8 Creatinine (0.55-1.02) mg/dL 1.1 H Est GFR (CKD-EPI 2020) (mL/min/1.73m2) 60.08 Glucose (74-106) mg/dL 86 Calcium (8.5-10.1) mg/dL 8.8 Quality:SDOH Health Related Social Needs: No Data to Display PFSH All Active Problems (Updated 10/22/24 @ 09:37 by Daysi Davenport NP) Influenza A (Acute) Foot fracture, left (Acute) Femoral acetabular impingement (Acute) Bilateral hip pain (Acute) Acquired leg length discrepancy (Acute) Hip instability (Acute) Posterior tibial tendinitis of left leg (Acute) Plantar fasciitis (Acute) Pain in left foot (Acute) Food allergy (Acute) Multiple environmental allergies (Acute) Itchy skin (Acute) Benign colon polyp (Acute ~07/2023) hyperplastic Screening for malignant neoplasm of colon performed (Acute) Medical History Bite or sting by insect with infection Other specified abnormal findings of blood chemistry Joint pain Arthritis Postmenopausal HRT (hormone replacement therapy) Localized osteoarthritis of right knee Right hamstring muscle strain Polyarthralgia Foot pain Insomnia GERD (gastroesophageal reflux disease) Leg pain, left Family history of breast cancer Pat aunt with breast and ovarian cancer and BRCA 1 carrier. Pt tested 2011: BRCA 1&2 neg. Mat aunt and MGM with breast cancer in their 60s History of seizures as a child History of endometrial hyperplasia 2015:Without atypia. Rx with daily norethindrone 2017: normal endo bx. Stopped norethindrone January 2021 - no bleeding since Surgical History History of colonoscopy (~07/2023) Family History Father , lymphoma at age 41. Personal history of malignant neoplasm lymphoma Maternal Aunt Breast cancer Paternal Aunt Breast cancer Breast and ovarian cancer. BRCA1 positive. 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
[2024-10-22 09:51] VITALS: BP 115/77; PULSE 85; RESP 18; O2SAT 100
[2024-10-22 09:55] VITALS: TEMP 37.1
== END 2024-10-22 09:55 | disposition home or self-care (01) ==
PROVIDERS: Emergency Provider Nurse Practitioner Acute Care; PCP Family Medicine
DX: J10.1 Influenza due to other identified influenza virus with other respiratory manifestations (principal); S92.352A Displaced fracture of fifth metatarsal bone, left foot, initial encounter for closed fracture; Z98.818 Other dental procedure status; W18.39XA Other fall on same level, initial encounter; Y93.89 Activity, other specified; Y92.018 Other place in single-family (private) house as the place of occurrence of the external cause
CPT/HCPCS: 36415; 80048; 87426; 96360; 99285; 73630; 85025; 99284

== ENCOUNTER 2024-10-29 11:12 | Outpatient (CLI) | payer BC, SELFPAY ==
--- NOTE | 2024-10-29 11:22 | DI.RAD_ITS ---
Exam(s) XR CHEST 2V PA LATERAL EXAM: XR CHEST 2V PA LATERAL CLINICAL HISTORY: preop clearance, current cough with acute illness, Z01.818. TECHNIQUE: 2D digital imaging was performed. COMPARISON: No exams were available for comparison FINDINGS: 2 views: Heart size is normal. The mediastinum is not widened. Right clear. There is platelike atelectasis or mild scarring in the lingular segment of the left meri g. No pleural effusions. IMPRESSION: Platelike atelectasis or scarring in the lingular segment of the left lung. DATA REPOSITORY: RADIATION DOSE DELIVERED:
--- NOTE | 2024-10-29 12:45 | DI.MRI_ITS ---
Exam(s) MR LOWER JOINT LT WO EXAM: MR LOWER JOINT LT WO CLINICAL HISTORY: Posterior tibial tendinitis of lt leg, M76.822 TECHNIQUE: Multiplanar multisequence MRI was performed without intravenous contrast. COMPARISON: CR XR ANKLE LT COMPLETE from 03/31/2024 CR XR FOOT LT COMPLETE from 10/22/2024 FINDINGS: BONES/JOINTS: Fracture of the mid 5th metatarsal shaft noted no bone lesions identified. The talar do me is smooth. The ankle mortise is maintained. There is a tibiotalar joint effusion with fluid extend ing posterior to the joint. There is anterior spurring at the distal tibia as well as medial malleol us. There is a small plantar calcaneal spur. There is an accessory navicular which shows some edema within the bone as well as at the synchondrosis. Mild edema in the adjacent portion of the navicula r. LIGAMENTS: The tibiofibular and calcaneofibular ligaments are intact. The talofibular ligaments are i ntact. The deltoid ligament is intact. The syndesmosis is unremarkable. Sinus tarsi is normal. MUSCULOTENDINOUS STRUCTURES: Achilles tendon: Unremarkable. Plantar fascia: Unremarkable. Anterior Extensor tendons: Unremarkable. Posterior Tibialis: Unremarkable. Flexor Digitorum longus: Unremarkable. Flexor Hallucis longus: Unremarkable. Peroneus longus: Unremarkable. Peroneus brevis:Unremarkable. SOFT TISSUES: Edema around the 5th metatarsal fracture. Edema is seen at the dorsal and lateral aspe ct of the ankle. IMPRESSION: The posterior tibial tendon appears intact and without evidence of inflammation. There is an accesso ry navicular with edema within the the bone and synchondrosis. Tibiotalar joint effusion posterior extension. Degenerative changes at the tibiotalar joint. DATA REPOSITORY:
== END 2024-10-29 11:32 ==
LOC: DI 11:12
PROVIDERS: PCP Family Medicine; Visit Provider Podiatrist
DX: Z01.818 Encounter for other preprocedural examination (principal); M76.822 Posterior tibial tendinitis, left leg; J98.11 Atelectasis; R05.9 Cough, unspecified
CPT/HCPCS: 73721; 71046

== ENCOUNTER 2024-10-29 11:55 | Outpatient (CLI) | payer BC, SELFPAY ==
[2024-10-29 11:38] LABS: Abs Immature Grans 0.04 10^3/uL (0.0-0.06); Absolute Basophil Count 0.04 10^3/uL (0.0-0.2); Absolute Eosinophil Count 0.24 10^3/uL (0.0-0.7); Absolute Lymphocyte Count 1.66 10^3/uL (1.2-3.4); Absolute Monocyte Count 0.76 10^3/uL (0.1-0.8); Basophils % 0.3 %; HCT 41.9 % (36.0-46.0); HGB 13.5 g/dL (11.2-15.7); Immature Grans % 0.3 %; Lymphocytes % 13.8 %; MCHC 32.2 % (32.0-36.0); MCV 90 fL (80-95); MPV 10.3 fL (8.0-11.0); Monocytes % 6.3 %; Neutrophils % 77.3 %; Platelet Count 235 10^3/uL (130-400); RBC 4.65 10^6/uL (3.93-5.22); RDW-SD 42.6 fL
[2024-10-29 11:43] LABS: Absolute Neutrophil Count 9.28 10^3/uL (1.2-6.7)
[2024-10-29 12:09] LABS: ALT 46 U/L (14-59); AST 36 U/L (15-37); Albumin 3.5 g/dL (3.4-5.0); Alkaline Phosphatase 76 U/L (46-116); Anion Gap 3.4 mmol/L (3-11); BUN 11 mg/dL (7-18); Bilirubin, Total 0.73 mg/dL (0.2-1.0); CO2 31.6 mmol/L (21.0-32.0); Calcium 9.6 mg/dL (8.5-10.1); Chloride 107 mmol/L (98-107); Estimated GFR 67.36 (mL/min/1.73m2); Glucose 96 mg/dL (74-106); Potassium 3.9 mmol/L (3.5-5.1); Sodium 142 mmol/L (136-145); Total Protein 7.6 g/dL (6.4-8.2)
== END 2024-10-29 11:56 | disposition home or self-care (01) ==
LOC: LBO 11:56
PROVIDERS: PCP Family Medicine; Visit Provider Podiatrist
DX: Z01.818 Encounter for other preprocedural examination (principal); M76.822 Posterior tibial tendinitis, left leg; S92.352A Displaced fracture of fifth metatarsal bone, left foot, initial encounter for closed fracture; Z09 Encounter for follow-up examination after completed treatment for conditions other than malignant neoplasm; T14.8XXA Other injury of unspecified body region, initial encounter
CPT/HCPCS: 36415; 80053; 85025

== ENCOUNTER 2024-11-02 09:56 | Emergency (ER) | payer BC, SELFPAY ==
[2024-11-02 10:09] VITALS: BP 142/88; PULSE 105; RESP 16; TEMP 36.7; O2SAT 95
--- NOTE | 2024-11-02 10:52 | DI.RAD_ITS ---
Exam(s) XR CHEST 2V PA LATERAL EXAM: XR CHEST 2V PA LATERAL CLINICAL HISTORY: COUGH TECHNIQUE: 2D digital imaging was performed of the chest. Two images were obtained. PA and lateral views were obtained. COMPARISON: CR XR CHEST 2V PA LATERAL from 10/29/2024 FINDINGS: MEDIASTINUM: Normal. HEART: Normal. PULMONARY VASCULATURE: Normal. LUNGS: There are new increased lung markings in the right lung base laterally. The left lung remains clear. PLEURAL SPACE: No pleural effusion or pneumothorax. BONE:Within normal limits for the patient's age. OTHER FINDINGS:Normal. IMPRESSION: Question of new increased lung markings in the lateral aspect of the right lung base suspicious for n ew or developing pneumonia or atelectasis. DATA REPOSITORY: RADIATION DOSE DELIVERED:
--- NOTE | 2024-11-02 11:23 | ED.GENADUL_ITS ---
Discharge Plan Disposition Patient Disposition: Home Condition: Stable Discharge Details Clinical Impression: Pneumonia Primary Care Provider: Tracy Brannon ED Provider: Miles Rasheed Home Meds and New Rx's Prescriptions: New doxycycline hyclate 100 mg capsule 100 mg PO BID 5 Days Qty: 10 0RF Continued acetaminophen 500 mg capsule 500 mg PO Q6H PRN cetirizine [Zyrtec] 10 mg tablet 10 mg PO DAILY PRN diphenhydramine HCl [Benadryl Allergy] 25 mg tablet 25 mg PO QHS PRN magnesium oxide 250 mg magnesium tablet 250 mg PO BID atorvastatin 20 mg tablet 20 mg PO DAILY calcium citrate-vitamin D3 [Citracal Regular] 250 mg-5 mcg (200 unit) tablet 1 tab PO DAILY estradiol-norethindrone acet 0.5-0.1 mg tablet 1 tab PO DAILY Qty: 84 3RF omeprazole 10 mg capsule,delayed release(DR/EC) 20 mg PO .QOD loratadine [Allergy Relief (loratadine)] 10 mg tablet 10 mg PO DAILY PRN eszopiclone 2 mg tablet 2 mg PO QHS naproxen 250 mg tablet 500 mg PO BID PRN albuterol sulfate 90 mcg/actuation HFA aerosol inhaler 2 inh INHALATION Q4H PRN Patient Comments: INHALE TWO PUFFS BY MOUTH EVERY 4 HOURS NEEDED FOR COUGH Discharge Instructions Instructions: Doxycycline, Pneumonia, Adult ED Additional Instructions: You were seen in the emergency department for your possible early developing right lower lobe pneumonia, starting on empiric antibiotics of doxycycline for 5 days sent to [facility] in [place]. We have provided a spacer for your inhaler. Please return to the ED for reevaluation with any profound increase in shortness of breath or other emergent concerns. Please take regular dose of Tylenol and Aleve as tolerated for any pains and bodyaches, stay well- hydrated and nourished. Referrals: Tracy Brannon [Primary Care Provider] - Discharge Data Discharge Date/Time-TO BE ENTERED AT DEPARTURE: 11/02/24 11:43 HPI General Date/Time Provider Initiated Documentation: 11/02/24 10:14 . HPI Narrative: 53 year-old female presents to ED today by POV/ambulating with a chief complaint of influenza infection 2 weeks ago, now developing a productive cough with onset over the past few days. Quality described as green phlegm, mild SOB, mild sore throat, no radiation to respiratory distress, nausea/vomiting, diarrhea, abdominal pain, high fevers. Severity is described as moderate. Palliating factors include nothing specific attempted. Provoking factors include nothing specific. Patient not anticoagulated. Related Data Home Medications ?Medication ?Instructions ?Recorded ?Confirmed eszopiclone 2 mg tablet 2 mg PO QHS 09/28/19 11/02/24 magnesium oxide 250 mg PO BID 01/02/21 11/02/24 acetaminophen 500 mg capsule 500 mg PO Q6H PRN 04/22/23 11/02/24 naproxen 250 mg tablet 500 mg PO BID PRN 07/11/23 11/02/24 cetirizine 10 mg tablet (Zyrtec) 10 mg PO DAILY PRN 04/17/24 11/02/24 atorvastatin 20 mg tablet 20 mg PO DAILY 04/28/24 11/02/24 calcium 250 mg (as 1 tab PO DAILY 05/12/24 11/02/24 citrate)-vitamin D3 5 mcg (200 unit) tablet (Citracal Regular) estradiol-norethindrone acet 0.5 1 tab PO DAILY #84 tabs 05/12/24 11/02/24 mg-0.1 mg tablet diphenhydramine HCl 25 mg tablet 25 mg PO QHS PRN 06/02/24 11/02/24 (Benadryl Allergy) loratadine 10 mg tablet (Allergy 10 mg PO DAILY PRN 07/09/24 11/02/24 Relief (loratadine)) omeprazole 10 mg capsule,delayed 20 mg PO .QOD 07/09/24 11/02/24 release albuterol sulfate 90 mcg/actuation 2 inh inhalation Q4H PRN 11/02/24 11/02/24 aerosol inhaler doxycycline hyclate 100 mg capsule 100 mg PO BID 5 days #10 caps 11/02/24 Previous Rx's ?Medication ?Instructions ?Recorded estradiol-norethindrone acet 0.5 1 tab PO DAILY #84 tabs 05/12/24 mg-0.1 mg tablet doxycycline hyclate 100 mg capsule 100 mg PO BID 5 days #10 caps 11/02/24 Allergies Allergy/AdvReac Type Severity Reaction Status Date / Time house dust mite Allergy Intermediate nasal Verified 11/02/24 10:13 Sulfa (Sulfonamide Allergy Intermediate itching Verified 11/02/24 10:13 Antibiotics) cat dander Allergy Other (See Verified 11/02/24 10:13 Comment) dog dander Allergy Other (See Verified 11/02/24 10:13 Comment) grass pollen Allergy Other (See Verified 11/02/24 10:13 Comment) tree and shrub pollen Allergy Other (See Verified 11/02/24 10:13 Comment) General Stated Complaint: RespSymp JOI: 3 Review of Systems All systems reviewed & are unremarkable except as noted in HPI and below Exam Narrative Exam Narrative: GENERAL APPEARANCE: Well-nourished, non-toxic, awake and alert, atraumatic, no acute distress. SKIN: Warm, pink, dry, intact, without rashes/lesions/ulcerations. HEAD: Normocephalic, atraumatic, normal hair distribution for gender/age. EYES: Normal conjunctiva, no exudates on lids/lashes. ENT: Nares patent, no circumoral cyanosis, no facial swelling NECK: Supple, trachea midline, painless cervical ROM. LUNGS/CHEST: Lungs CTA bilaterally- no rhonchi/rales/wheezes diffusely, non- labored respirations, normal A/P diameter, symmetrical expansion, no chest wall deformity HEART (CV/PV): Regular rate and rhythm without murmur, no peripheral edema, no JVD. ABDOMEN: Soft, non-distended, no guarding. MSK: Normal ROM, no swelling/deformity to bilateral UEs or LEs, moving all extremities without weakness, no cyanosis, spine midline without tenderness, normal curvature. NEURO: Mental Status AAOx4 - alert to person, place, time, events No facial droop, no forehead involvement. Motor: No focal weakness - strength 5/5 in bilateral UEs and LEs, proximal and distal, symmetric. Sensory: sensation intact to light touch globally. Gait normal: patient ambulated without ataxia into ED room. PSYCH: euthymic, cooperative, pleasant, appropriate speech Course Vital Signs Vital signs: Vital Signs Temperature 36.7 C 11/02/24 10:09 Pulse 105 H 11/02/24 10:09 Respiratory Rate 16 11/02/24 10:09 Blood Pressure 142/88 H 11/02/24 10:09 Pulse Oximetry 95 11/02/24 10:09 Temperature 36.7 C 11/02/24 10:09 Temperature Source Oral 11/02/24 10:09 Pulse 105 H 11/02/24 10:09 Respiratory Rate 16 11/02/24 10:09 Blood Pressure 142/88 H 11/02/24 10:09 Blood Pressure Position Sitting 11/02/24 10:09 Pulse Oximetry 95 11/02/24 10:09 Oxygen Delivery Method Room Air 11/02/24 10:09 Oxygen Flow Rate 0 11/02/24 10:09 Pain Level 1 11/02/24 10:09 Medical Decision Making This dictation utilizes [id number] dictation software and may contain unedited grammatical errors. 53 year-old female presents to ED today by POV/ambulating with a chief complaint of influenza infection 2 weeks ago, now developing a productive cough with onset over the past few days. Quality described as green phlegm, mild SOB, mild sore throat, no radiation to respiratory distress, nausea/vomiting, diarrhea, abdominal pain, high fevers. Severity is described as moderate. Palliating factors include nothing specific attempted. Provoking factors include nothing specific. Patients' medical history: Noncontributory. Family and social history: Noncontributory. Pertinent exam findings / vital signs include lungs overtly CTA, nontoxic and afebrile, no respiratory distress. Differential / pathologies of concern include secondary bacterial infection, unlikely PE, unlikely respiratory failure. Diagnostic studies of: -XR chest - questions early PNA to R base Interventions of: -Rx for doxycycline. ED Course/Assessment/Plan: 53-year-old female presents with worsening productive cough after getting over influenza infection, questionable right lower lobe developing pneumonia on chest x-ray, plan to treat with doxycycline, strict return criteria for any respiratory distress or worsening despite treatment. Findings not consistent with respiratory distress, hypoxic respiratory failure, sepsis, fever. Disposition of pneumonia. Patient verbalized understanding of the plan and return to ED criteria and engaged in shared decision making. Medical Records Medical records reviewed: Yes I reviewed the patient's medical records. Imaging Data Radiologic Study: Attestation: I personally reviewed and interpreted this imaging study as follows: Imaging: X-Ray Radiologist's impression: EXAM: XR CHEST 2V PA LATERAL CLINICAL HISTORY: COUGH TECHNIQUE: 2D digital imaging was performed of the chest. Two images were obtained. PA and lateral views were obtained. COMPARISON: CR XR CHEST 2V PA LATERAL from 10/29/2024 FINDINGS: MEDIASTINUM: Normal. HEART: Normal. PULMONARY VASCULATURE: Normal. LUNGS: There are new increased lung markings in the right lung base laterally. The left lung remains clear. PLEURAL SPACE: No pleural effusion or pneumothorax. BONE:Within normal limits for the patient's age. OTHER FINDINGS:Normal. IMPRESSION: Question of new increased lung markings in the lateral aspect of the right lung base suspicious for new or developing pneumonia or atelectasis. Lab Data Lab results reviewed: Yes I reviewed the patient's lab results. Quality:SDOH Health Related Social Needs: No Data to Display PFSH All Active Problems (Updated 11/02/24 @ 11:29 by DAYTON Tidwell) Pneumonia (Acute) Displaced fracture of fifth metatarsal bone of left foot (Acute) Fracture of fifth metatarsal bone of left foot (Acute) Influenza A (Acute) Foot fracture, left (Acute) Femoral acetabular impingement (Acute) Bilateral hip pain (Acute) Acquired leg length discrepancy (Acute) Hip instability (Acute) Posterior tibial tendinitis of left leg (Acute) Plantar fasciitis (Acute) Pain in left foot (Acute) Food allergy (Acute) Multiple environmental allergies (Acute) Itchy skin (Acute) Benign colon polyp (Acute ~07/2023) hyperplastic Screening for malignant neoplasm of colon performed (Acute) Medical History Bite or sting by insect with infection Other specified abnormal findings of blood chemistry Joint pain Arthritis Postmenopausal HRT (hormone replacement therapy) Localized osteoarthritis of right knee Right hamstring muscle strain Polyarthralgia Foot pain Insomnia GERD (gastroesophageal reflux disease) Leg pain, left Family history of breast cancer Pat aunt with breast and ovarian cancer and BRCA 1 carrier. Pt tested 2012: BRCA 1&2 neg. Mat aunt and MGM with breast cancer in their 60s History of seizures as a child History of endometrial hyperplasia 2015:Without atypia. Rx with daily norethindrone 2017: normal endo bx. Stopped norethindrone January 2021 - no bleeding since Surgical History History of colonoscopy (~07/2023) Family History Father , lymphoma at age 41. Personal history of malignant neoplasm lymphoma Maternal Aunt Breast cancer Paternal Aunt Breast cancer Breast and ovarian cancer. BRCA1 positive. 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
[2024-11-02 11:26] VITALS: PULSE 97; RESP 16; TEMP 36.7; O2SAT 96
[2024-11-02] MEDS: Inhaler, Assist Device 1 EACH MC (11:39)
== END 2024-11-02 11:43 | disposition home or self-care (01) ==
PROVIDERS: Emergency Provider Physician Assistant; PCP Family Medicine
DX: J18.9 Pneumonia, unspecified organism (principal)
CPT/HCPCS: 99283; 71046

== ENCOUNTER 2024-11-10 01:48 | Outpatient (CLI) | payer BC, SELFPAY ==
--- NOTE | 2024-11-10 06:30 | DI.RAD_ITS ---
Exam(s) XR FOOT LT COMPLETE EXAM: XR FOOT LT COMPLETE CLINICAL HISTORY: ? any worsening?healing,fx 5th metatarsal bone,s92.352a. TECHNIQUE: 2D digital imaging was performed of the left foot. Three images were obtained. AP, obli que and lateral views were obtained. COMPARISON: CR XR FOOT LT COMPLETE from 10/22/2024 FINDINGS: BONES: There has been no change in alignment of the comminuted fracture involving the 5th metatarsal. No new fractures identified. No bony destructive lesion is seen. There is a small plantar calcanea l spur. JOINTS: No dislocation present. There are mild degenerative changes seen in the foot. SOFT TISSUE: Normal. IMPRESSION: Stable alignment of the 5th metatarsal fracture. DATA REPOSITORY: RADIATION DOSE DELIVERED:
== END 2024-11-10 02:08 ==
LOC: DI 01:48
PROVIDERS: PCP Family Medicine; Visit Provider Podiatrist
DX: S92.352D Displaced fracture of fifth metatarsal bone, left foot, subsequent encounter for fracture with routine healing (principal); X58.XXXD Exposure to other specified factors, subsequent encounter
CPT/HCPCS: 73630

== ENCOUNTER 2024-12-11 00:45 | Outpatient (CLI) | payer BC, SELFPAY ==
--- NOTE | 2024-12-11 11:51 | DI.RAD_ITS ---
Exam(s) XR FOOT LT COMPLETE EXAM: XR FOOT LT COMPLETE CLINICAL HISTORY: ? consolidating,f/u fx 5th metatarsal bone,s92.352a. TECHNIQUE: 2D digital imaging was performed. Three views. COMPARISON: CR XR FOOT LT COMPLETE from 11/10/2024 FINDINGS: BONES: Stable alignment of the 5th meta tarsal fracture. No acute fracture is present. No bony destr uctive lesion is seen. Accessory navicular. Small plantar calcaneal spur. JOINTS: No dislocation present. Mild degenerative changes of the 1st MTP joint. SOFT TISSUE: Normal. IMPRESSION: Stable alignment of 5th metatarsal fracture. DATA REPOSITORY: RADIATION DOSE DELIVERED:
== END 2024-12-11 01:05 ==
LOC: DI 00:45
PROVIDERS: PCP Family Medicine; Visit Provider Podiatrist
DX: S92.352D Displaced fracture of fifth metatarsal bone, left foot, subsequent encounter for fracture with routine healing (principal); X58.XXXD Exposure to other specified factors, subsequent encounter
CPT/HCPCS: 73630

== ENCOUNTER 2025-01-19 00:24 | Outpatient (CLI) | payer BC, SELFPAY ==
--- NOTE | 2025-01-19 09:03 | DI.RAD_ITS ---
Exam(s) XR FOOT LT COMPLETE EXAM: XR FOOT LT COMPLETE CLINICAL HISTORY: ? HEALING, FX 5TH METATARSAL BONE LT FOOT. TECHNIQUE: 2D digital imaging was performed. COMPARISON: CR XR FOOT LT COMPLETE from 11/10/2024 CR XR FOOT LT COMPLETE from 12/11/2024 FINDINGS: 3 views The site at the midshaft level of the 5th metatarsal is again noted with fracture line still evident and some angulation displacement of the fracture fragments again noted but unchanged. There are no n ew additional fractures evident. Degenerative changes in the great toe metatarsophalangeal joint are again noted. IMPRESSION: Stable unchanged appearance of the fracture site in the 5th metatarsal. Incomplete healing. DATA REPOSITORY: RADIATION DOSE DELIVERED:
== END 2025-01-19 00:44 ==
PROVIDERS: PCP Family Medicine; Visit Provider Podiatrist
DX: S92.352D Displaced fracture of fifth metatarsal bone, left foot, subsequent encounter for fracture with routine healing (principal); X58.XXXD Exposure to other specified factors, subsequent encounter
CPT/HCPCS: 73630

== ENCOUNTER 2025-03-02 01:32 | Outpatient (CLI) | payer BC, SELFPAY ==
--- NOTE | 2025-03-02 13:40 | DI.RAD_ITS ---
Exam(s) XR FOOT LT COMPLETE EXAM: XR FOOT LT COMPLETE CLINICAL HISTORY: ? 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 TECHNIQUE: 2D digital imaging was performed of the left foot. Three images were obtained. AP, oblique and lateral views were obtained. COMPARISON: CR XR FOOT LT COMPLETE from 10/22/2024 CR XR FOOT LT COMPLETE from 01/19/2025 FINDINGS: BONES: There is again seen a comminuted fracture involving the 5th metatarsal. The most proximal aspect of the fracture is still visualized. No bony destructive lesion is seen. There is a small plantar calcaneal spur. JOINTS: No dislocation present. Degenerative changes are seen in the foot particularly at the 1st MTP joint. There is a small spur at the dorsal aspect of the head of the 1st metatarsal bone. SOFT TISSUE: Normal. IMPRESSION: Healing 5th metatarsal fracture. The proximal fracture component has not completely healed. DATA REPOSITORY: RADIATION DOSE DELIVERED:
== END 2025-03-02 01:52 ==
LOC: DI 01:32
PROVIDERS: PCP Family Medicine; Visit Provider Podiatrist
DX: S92.352D Displaced fracture of fifth metatarsal bone, left foot, subsequent encounter for fracture with routine healing (principal); X58.XXXD Exposure to other specified factors, subsequent encounter
CPT/HCPCS: 73630

== ENCOUNTER 2025-04-06 01:48 | Outpatient (CLI) | payer BC, SELFPAY ==
--- NOTE | 2025-04-06 13:47 | DI.RAD_ITS ---
Exam(s) XR FOOT LT COMPLETE EXAM: XR FOOT LT COMPLETE CLINICAL HISTORY: Check fracture healing,FX 5TH METATARSAL BONE,S92.352A. TECHNIQUE: 2D digital imaging was performed of the left foot. Three images were obtained. AP, oblique and lateral views were obtained. COMPARISON: CR XR FOOT LT COMPLETE from 10/22/2024 CR XR FOOT LT COMPLETE from 03/02/2025 FINDINGS: BONES: There has been no change in alignment of the 5th metatarsal fracture. The fracture line is still visualized proximally. No bony destructive lesion is seen. There is a small enthesophyte at the posterior calcaneus. There is a small plantar calcaneal spur. JOINTS: No dislocation present. There are degenerative changes seen at the 1st MTP joint characterized by joint space narrowing and osteophytes. SOFT TISSUE: Normal. IMPRESSION: There is stable alignment of the 5th metatarsal fracture. The fracture line is still visualized proximally. To assess for extent of healing, CT scan may be considered. DATA REPOSITORY: RADIATION DOSE DELIVERED:
== END 2025-04-06 02:08 ==
LOC: DI 01:48
PROVIDERS: PCP Family Medicine; Visit Provider Podiatrist
DX: S92.352D Displaced fracture of fifth metatarsal bone, left foot, subsequent encounter for fracture with routine healing (principal); X58.XXXD Exposure to other specified factors, subsequent encounter
CPT/HCPCS: 73630

== ENCOUNTER 2025-06-04 02:11 | Outpatient (CLI) | payer BC, SELFPAY ==
--- NOTE | 2025-06-04 12:00 | DI.MAMMO_ITS ---
Exam(s) MAMMO SCREENING EXAM: MAMMO SCREENING CLINICAL HISTORY: screening TECHNIQUE: Bilateral full field digital CC and MLO mammographic images were obtained with 3D tomosynthesis and utilizing computer aided detection (CAD). COMPARISON: Comparison is made with prior examinations. FINDINGS: Masses/Architectural Distortion: No suspicious masses or areas of architectural distortion are present. Microcalcifications: No suspicious pleomorphic-type are seen. Skin Thickening/Nipple Retraction: None. IMPRESSION: 1. No significant interval change with no specific features of malignancy noted. 2. Unless there is more urgent need, screening mammography is recommended, as per [place] [employer] guidelines. BI-RADS Category 1 - Negative Breast Density - Category C - The breast are heterogeneously dense, which may obscure small masses. Breast density Category C or D implies that the patient has dense breast tissue. Dense breast tissue can make it harder to find cancer on a mammogram. Dense breast tissue is also associated with an increased risk of breast cancer. This information about the result of the mammogram report was provided to the patient to raise their awareness. Use this report when you speak with the patient about their risks for breast cancer, which includes their family history. At that time, you may recommend additional screening tests (Ultrasound or MRI) as these tests may add significant information. A negative radiographic report should not delay biopsy if a dominant or clinically suspicious mass is present. Up to ten percent of cancers are not identified on mammography. A negative report may reinforce clinical impression. Adenosis and dense breasts may obscure an underlying neoplasm. False positive reports average 6 to 10%. Patient will receive a letter notifying them of these results.
== END 2025-06-04 02:31 ==
LOC: DI 02:11
PROVIDERS: PCP Family Medicine; Visit Provider Obstetrics & Gynecology
DX: Z12.31 Encounter for screening mammogram for malignant neoplasm of breast (principal)
CPT/HCPCS: 77063; 77067

== ENCOUNTER 2025-07-05 02:47 | Outpatient (CLI) | payer BC, SELFPAY ==
--- NOTE | 2025-07-05 07:45 | DI.RAD_ITS ---
Exam(s) XR FOOT LT COMPLETE EXAM: XR FOOT LT COMPLETE CLINICAL HISTORY: Healed?, FRACTURE FIFTH METATARSAL LT FOOT NONUNION, S92.352K. TECHNIQUE: 2D digital imaging was performed. Three views. COMPARISON: CR XR FOOT LT COMPLETE from 03/02/2025 CR XR FOOT LT COMPLETE from 04/06/2025 FINDINGS: BONES: No acute fracture is present. Stable alignment of 5th metatarsal fracture. There has been continued healing at the 5th metatarsal fracture. Fracture line is still visible. No bony destructive lesion is seen. JOINTS: No dislocation present. SOFT TISSUE: Normal. IMPRESSION: delayed union of 5th metatarsal fracture. Has been some healing when compared to the previous exam DATA REPOSITORY: RADIATION DOSE DELIVERED:
== END 2025-07-05 03:07 ==
LOC: DI 02:47
PROVIDERS: PCP Family Medicine; Visit Provider Podiatrist
DX: S92.352D Displaced fracture of fifth metatarsal bone, left foot, subsequent encounter for fracture with routine healing (principal); X58.XXXD Exposure to other specified factors, subsequent encounter
CPT/HCPCS: 73630

== ENCOUNTER 2025-08-22 17:46 | Emergency (ER) | payer BC, SELFPAY ==
[2025-08-22] VITALS (24 sets, daily range): BP systolic 121–146; BP diastolic 65–106; PULSE 70–120; RESP 12–21; TEMP 36.8; O2SAT 96–99
--- NOTE | 2025-08-22 17:45 | RT.EKG_ITS ---
APPROVED REPORT Exam: Resting ECG Reason for Exam: chest pain Patient Location: E HR:101 bpm ECG Measurements Heart Rate 101 AXIS OH 165 P 80 QRSd 104 QRS 110 QT 345 T 41 QTc 448 Conclusion Sinus tachycardia, rate 101 No interval abnormalities No STEMI No priors available for comparison
--- NOTE | 2025-08-22 18:15 | DI.RAD_ITS ---
Exam(s) XR CHEST 2V PA LATERAL EXAM: XR CHEST 2V PA LATERAL CLINICAL HISTORY: Chest pain. TECHNIQUE: 2D digital imaging was performed. COMPARISON: CR XR CHEST 2V PA LATERAL from 11/02/2024 FINDINGS: 2 views: Heart size is normal. The mediastinum is not widened. Lungs are clear. No infiltrates nor pleural effusions. IMPRESSION: No acute pulmonary findings. DATA REPOSITORY: RADIATION DOSE DELIVERED:
[2025-08-22 18:28] LABS: Abs Immature Grans 0.01 10^3/uL (0.0-0.06); HCT 40.4 % (36.0-46.0); HGB 13.2 g/dL (11.2-15.7); Immature Grans % 0.2 %; MCH 29.1 pg (27.0-33.0); MCHC 32.7 % (32.0-36.0); MCV 89 fL (80-95); MPV 10.3 fL (8.0-11.0); Platelet Count 224 10^3/uL (130-400); RBC 4.54 10^6/uL (3.93-5.22); RDW 13.0 % (11.7-14.6); RDW-SD 42.6 fL; WBC 6.03 10^3/uL (4.4-10.8)
[2025-08-22 18:47] LABS: INR 1.0 (0.9-1.1); PTT Activated 24.1 sec (20.6-30.2); Prothrombin Time 10.0 sec (9.1-11.1)
[2025-08-22 18:50] LABS: Lipase 44 U/L (<53); Magnesium 2.0 mg/dL (1.6-2.6)
[2025-08-22 18:52] LABS: ALT 18 U/L (10-49); AST 23 U/L (<34); Albumin 4.1 g/dL (3.2-5.0); Alkaline Phosphatase 51 U/L (46-116); Anion Gap 9.5 mmol/L (3-11); BUN 13 mg/dL (9-23); Bilirubin, Total 0.50 mg/dL (0.2-1.2); CO2 27.5 mmol/L (20.0-31.0); Calcium 9.0 mg/dL (8.3-10.6); Chloride 107 mmol/L (98-107); Glucose 121 mg/dL (74-106); Potassium 3.4 mmol/L (3.5-5.1); Sodium 144 mmol/L (136-145); Total Protein 7.2 g/dL (5.7-8.2); Troponin I < 3 ng/L (<35)
[2025-08-22] MEDS: Aspirin 81 MG CHEW 324 MG CH (19:17)
[2025-08-22 19:32] LABS: D-Dimer 261 ng/mlFEU (<500)
--- NOTE | 2025-08-22 19:42 | DI.VRAD_ITS ---
PROCEDURE INFORMATION: Exam: XR Chest Exam date and time: 08/22/2025 6:52 PM Age: 54 years old Clinical indication: Other: Chest pain TECHNIQUE: Imaging protocol: Radiologic exam of the chest. Views: 2 views. COMPARISON: CR XR CHEST 2V PA LATERAL 11/02/2024 10:46 AM FINDINGS: Lungs: Unremarkable. No consolidation. Pleural spaces: Unremarkable. No pleural effusion. No pneumothorax. Heart/Mediastinum: Unremarkable. No cardiomegaly. Bones/joints: Unremarkable. IMPRESSION: No evidence for acute abnormality in the chest. Dictated and Authenticated by: Lois Moore MD. Orderin St. Kobi Howard MD
[2025-08-22 19:47] LABS: Troponin I 4 ng/L (<35)
--- NOTE | 2025-08-22 19:59 | W.ED.GENAD ---
Discharge Plan Disposition Patient Disposition: Home Condition: Stable Discharge Details Clinical Impression: Chest pain of uncertain etiology Primary Care Provider: Tracy Brannon ED Provider: Anita Rocha Home Meds and New Rx's Prescriptions: No Action acetaminophen 500 mg capsule 500 mg PO Q6H PRN cetirizine [Zyrtec] 10 mg tablet 10 mg PO DAILY PRN diphenhydramine HCl [Benadryl Allergy] 25 mg tablet 25 mg PO QHS PRN magnesium oxide 250 mg magnesium tablet 250 mg PO BID atorvastatin 20 mg tablet 20 mg PO DAILY calcium citrate-vitamin D3 [Citracal Regular] 250 mg-5 mcg (200 unit) tablet 1 tab PO DAILY Patient Comments: NOT Citracal: Is through EBM. omeprazole 10 mg capsule,delayed release(DR/EC) 20 mg PO .QOD loratadine [Allergy Relief (loratadine)] 10 mg tablet 10 mg PO DAILY PRN estradiol-norethindrone acet 0.5-0.1 mg tablet 1 tab PO DAILY Qty: 84 3RF eszopiclone 2 mg tablet 2 mg PO QHS naproxen 250 mg tablet 500 mg PO BID PRN oseltamivir 75 mg capsule 75 mg PO DAILY Discharge Instructions Instructions: Chest Pain, Adult ED Additional Instructions: You were seen in the emergency department today for evaluation of chest pain. In our department had a full physical examination performed, and had a reassuring EKG. You had laboratory studies that showed no sign of damage to your heart, was negative for blood clots, and were otherwise quite reassuring. You had a chest x-ray that did not show any abnormalities which might explain your pain. Unfortunately, we were not able to determine the exact cause of your chest pain here in the emergency department today, and your symptoms have improved. It is safe for you to go home, but you will need to follow-up with your primary care provider to discuss this visit and any symptoms that change, worsen, or persist. You may require ongoing treatment or testing to determine the cause of your pain. If you do develop sudden change or worsening of your chest pain, shortness of breath, fever or chills, or any other symptoms that cause you concern you should return to the emergency department immediately for reevaluation. Please follow-up with your primary care provider in the next few days to discuss this visit and any symptoms that change, worsen, or persist. Thank you for allowing us to be part of your care. Stand Alone Forms: Portal Information HPI General Mode of arrival: ambulatory. Date/Time Provider Initiated Documentation: 08/22/25 18:01. Limitations to Documentation: no limitations. Information obtained by: patient, family and old records reviewed. HPI Narrative: This is a 54-year-old female patient with a history of GERD, presenting for evaluation of chest pain. The patient was listening to the [employer] about an hour prior to arrival, and had a sudden onset of sharp pain in the left side of her chest. She feels like this has since subsided, but she did have an episode where she felt like her heart was pounding, and still feels some general mild discomfort in that area. The chest pain was not reproducible with deep breath, palpation, or movement. She has never had pain like this before, and has no personal cardiac history. Prior to this event she was in her normal state of health. She denies shortness of breath or cough, leg swelling, no history of thromboembolic disease but does take a hormonal medication for post menopause symptoms. Related Data Home Medications ?Medication ?Instructions ?Recorded ?Confirmed eszopiclone 2 mg tablet 2 mg PO QHS 09/28/19 08/22/25 magnesium oxide 250 mg PO BID 01/02/21 08/22/25 acetaminophen 500 mg capsule 500 mg PO Q6H PRN 04/22/23 08/22/25 naproxen 250 mg tablet 500 mg PO BID PRN 07/11/23 08/22/25 cetirizine 10 mg tablet (Zyrtec) 10 mg PO DAILY PRN 04/17/24 08/22/25 atorvastatin 20 mg tablet 20 mg PO DAILY 04/28/24 08/22/25 calcium 250 mg (as 1 tab PO DAILY 05/12/24 08/22/25 citrate)-vitamin D3 5 mcg (200 unit) tablet (Citracal Regular) diphenhydramine HCl 25 mg tablet 25 mg PO QHS PRN 06/02/24 08/22/25 (Benadryl Allergy) loratadine 10 mg tablet (Allergy 10 mg PO DAILY PRN 07/09/24 08/22/25 Relief (loratadine)) omeprazole 10 mg capsule,delayed 20 mg PO .QOD 07/09/24 08/22/25 release estradiol-norethindrone acet 0.5 1 tab PO DAILY #84 tabs 05/13/25 08/22/25 mg-0.1 mg tablet oseltamivir 75 mg capsule 75 mg PO DAILY 06/10/25 08/22/25 Previous Rx's ?Medication ?Instructions ?Recorded estradiol-norethindrone acet 0.5 1 tab PO DAILY #84 tabs 05/13/25 mg-0.1 mg tablet Allergies Allergy/AdvReac Type Severity Reaction Status Date / Time house dust mite Allergy Intermediate nasal Verified 08/22/25 17:55 Sulfa (Sulfonamide Allergy Intermediate itching Verified 08/22/25 17:55 Antibiotics) cat dander Allergy Other (See Verified 08/22/25 17:55 Comment) dog dander Allergy Other (See Verified 08/22/25 17:55 Comment) grass pollen Allergy Other (See Verified 08/22/25 17:55 Comment) tree and shrub pollen Allergy Other (See Verified 08/22/25 17:55 Comment) mold AdvReac Other (See Unverified 08/22/25 17:55 Comment) General Stated Complaint: Chest Pain JOI: 3 Exam Narrative Exam Narrative: Gen: Awake and alert, in no apparent distress HEENT: Non-icteric sclera Neck: Supple Lungs: No apparent respiratory distress, normal respiratory effort. Lung sounds clear and equal bilaterally without wheezes, rhonchi, rales CV: Appears well perfused, heart with mildly tachycardic rate but regular rhythm, strong distal pulses Abdomen: Non-distended, soft, nontender to palpation without rigidity, rebound, or guarding. MSK: Moves 4 extremities without apparent limitation in ROM. No peripheral edema Skin: Visualized skin without rashes, cyanosis. Neuro: Normal Gait, no obvious focal deficits or facial asymmetry. Speaks in full, clear sentences. Psych: Appropriate for situation. Course Vital Signs Vital signs: Vital Signs Temperature 36.8 C 08/22/25 17:49 Pulse 120 H 08/22/25 17:49 Respiratory Rate 20 08/22/25 17:49 Blood Pressure 146/106 H 08/22/25 17:49 Pulse Oximetry 96 08/22/25 17:49 Temperature 36.8 C 08/22/25 17:49 Pulse 87 08/22/25 18:31 Pulse 91 H 08/22/25 19:10 Respiratory Rate 20 12/07/25 19:10 Respiratory Effort Normal 08/22/25 18:29 Respiratory Depth Normal 08/22/25 18:29 Respiratory Pattern Normal 08/22/25 18:29 Blood Pressure 125/85 08/22/25 18:31 Blood Pressure Mean 98 08/22/25 18:31 Pulse Oximetry 96 08/22/25 17:49 Pain Level 2 08/22/25 17:49 Lab/Test Results Lab/Test Results: Laboratory Tests Range/Units 08/22/25 08/22/25 18:20 19:20 WBC (4.4-10.8) 10^3/uL 6.03 RBC (3.93-5.22) 10^6/uL 4.54 Hgb (11.2-15.7) g/dL 13.2 Hct (36.0-46.0) % 40.4 MCV (80-95) fL 89 MCH (27.0-33.0) pg 29.1 MCHC (32.0-36.0) % 32.7 RDW (11.7-14.6) % 13.0 Plt Count (130-400) 10^3/uL 224 MPV (8.0-11.0) fL 10.3 Immature Gran % % 0.2 Neutrophils % % 55.0 Lymphocytes % % 31.7 Monocytes % % 8.8 Eosinophils % % 3.5 Basophils % % 0.8 Nucleated RBC % (0.0-0.3) % 0.0 Absolute Neutrophils (1.2-6.7) 10^3/uL 3.32 Absolute Lymphocytes (1.2-3.4) 10^3/uL 1.91 Absolute Monocytes (0.1-0.8) 10^3/uL 0.53 Absolute Eosinophils (0.0-0.7) 10^3/uL 0.21 Absolute Basophils (0.0-0.2) 10^3/uL 0.05 PT (9.1-11.1) sec 10.0 INR (0.9-1.1) 1.0 APTT (20.6-30.2) sec 24.1 D-Dimer (<500) ng/mlFEU 261 Sodium (136-145) mmol/L 144 Potassium (3.5-5.1) mmol/L 3.4 L Chloride (98-107) mmol/L 107 Carbon Dioxide (20.0-31.0) mmol/L 27.5 Anion Gap (3-11) mmol/L 9.5 BUN (9-23) mg/dL 13 Creatinine (0.55-1.02) mg/dL 0.99 Est GFR (CKD-EPI 2020) (mL/min/1.73m2) 58.31 Glucose (74-106) mg/dL 121 H Calcium (8.3-10.6) mg/dL 9.0 Magnesium (1.6-2.6) mg/dL 2.0 Total Bilirubin (0.2-1.2) mg/dL 0.50 AST (<34) U/L 23 ALT (10-49) U/L 18 Alkaline Phosphatase (46-116) U/L 51 Troponin I (<35) ng/L < 3 4 NT-Pro-B Natriuret Pep (<300) pg/mL 105 Total Protein (5.7-8.2) g/dL 7.2 Albumin (3.2-5.0) g/dL 4.1 Lipase (<53) U/L 44 Medical Decision Making This is a 54-year-old female patient presenting for evaluation of chest pain. My differential includes but is not limited to ACS including STEMI, NSTEMI, unstable angina, certainly considered arrhythmia, pericarditis/myocarditis, aortic pathology. Considered pulmonary abnormalities including pneumonia, bronchitis, pleural effusion, pulmonary edema, reactive airway disease, pneumothorax. The patient is without tachycardia, hypoxia, or a pleuritic component to this pain to significantly increase my concern for pulmonary embolism, but given her age and hormonal use she does not meet PERC criteria for rule out without labs. No GI symptoms or vomiting to suggest Boerhaave's, esophagitis, peptic ulcer disease, pancreatitis. Considered musculoskeletal pathologies including costochondritis, chest wall pain. I obtained and reviewed an EKG which shows a sinus tachycardia without evidence of ischemia, interval abnormality, or ectopy. We will obtain labs to include CBC, CMP, magnesium, troponin, BNP, D-dimer, and will obtain a chest x-ray. I will provide the patient with 324 mg of aspirin. -I independently interpreted the laboratory studies, which show no significant leukocytosis, anemia, or thrombocytopenia. The chemistry panel is without evidence of electrolyte abnormality other than a very slightly low potassium to 3.4, no kidney dysfunction, or liver injury. Initial troponin is negative, BNP is low as is the lipase, and the D-dimer is negative. Chest x-ray reviewed by myself, and shows no acute abnormalities to explain the patient's symptoms. Given the short duration of time, we did trend the troponins, at 1 and 3 hours the patient has had no significant interval increase to suggest active ischemia. The patient did have resolution of her chest pain while in the emergency department, she does complain of some acid reflux symptoms for which she took her home Prilosec, she declines any other interventions at this time for treatment of those symptoms as they are quite chronic. I discussed the workup today with the patient, including the reassuring negative studies and the need for ongoing management at her PCP office, and return to the emergency department for any recurrent symptoms. At this time, the patient has had a full medical evaluation and is safe for discharge to home. They are hemodynamically stable, ambulatory, and tolerating PO. They are understanding of the follow-up plan and return precautions. They left our facility without incident. 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 (Acute) Displaced fracture of fifth metatarsal bone of left foot (Acute) Fracture of fifth metatarsal bone of left foot (Acute) Femoral acetabular impingement (Acute) Bilateral hip pain (Acute) Acquired leg length discrepancy (Acute) Hip instability (Acute) Posterior tibial tendinitis of left leg (Acute) Plantar fasciitis (Acute) Pain in left foot (Acute) Food allergy (Acute) Multiple environmental allergies (Acute) Itchy skin (Acute) Benign colon polyp (Acute ~07/2023) hyperplastic Screening for malignant neoplasm of colon performed (Acute) Medical History Closed fracture of fifth metatarsal bone of left foot Icthyoparasitism Pain of both hip joints Blastocystis hominis infection Diarrhea Allergic rhinitis due to food Allergic reaction Tibialis posterior tendinitis Chronic insomnia Pain, joint, knee, right Bite or sting by insect with infection Other specified abnormal findings of blood chemistry Joint pain Arthritis Postmenopausal HRT (hormone replacement therapy) Localized osteoarthritis of right knee Right hamstring muscle strain Polyarthralgia Foot pain Insomnia GERD (gastroesophageal reflux disease) Leg pain, left Family history of breast cancer Pat aunt with breast and ovarian cancer and BRCA 1 carrier. Pt tested 2012: BRCA 1&2 neg. Mat aunt and MGM with breast cancer in their 60s History of seizures as a child History of endometrial hyperplasia 2014:Without atypia. Rx with daily norethindrone 2018: normal endo bx. Stopped norethindrone January 2021 - no bleeding since Surgical History History of colonoscopy (~07/2023) Family History Father , lymphoma at age 41. Personal history of malignant neoplasm lymphoma Maternal Aunt Breast cancer Paternal Aunt Breast cancer Breast and ovarian cancer. BRCA1 positive. 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
[2025-08-22 21:41] LABS: Troponin I 5 ng/L (<35)
== END 2025-08-22 22:16 | disposition home or self-care (01) ==
PROVIDERS: Emergency Provider Emergency Medicine; PCP Family Medicine
DX: R07.9 Chest pain, unspecified (principal)
CPT/HCPCS: 99284; 99285; 80053; 83690; 93005; 71046; 83735; 83880; 84484; 85025; 85379; 85610; 85730; 93010

== ENCOUNTER → 2025-09-01 00:02 | Outpatient (CLI) | payer BC, SELFPAY ==
--- NOTE | 2025-09-01 07:45 | DI.RAD_ITS ---
Exam(s) XR FOOT LT COMPLETE EXAM: XR FOOT LT COMPLETE CLINICAL HISTORY: ? HEALED, FX 5TH METATARSAL BONE, [id number]. TECHNIQUE: 2D digital imaging was performed. Three views. COMPARISON: CR XR FOOT LT COMPLETE from 07/05/2025 FINDINGS: BONES: There is stable alignment of the 5th metatarsal fracture. There has been continued healing when compared with the previous exam. There is bony bridging. No acute fracture is present. No bony destructive lesion is seen. JOINTS: No dislocation present. Degenerative changes at the 1st MTP joint. SOFT TISSUE: Normal. IMPRESSION: Continued healing of 5th metatarsal fracture. DATA REPOSITORY: RADIATION DOSE DELIVERED:
== END ==
LOC: DI 00:02
PROVIDERS: PCP Family Medicine; Visit Provider Podiatrist
DX: S92.352A Displaced fracture of fifth metatarsal bone, left foot, initial encounter for closed fracture (principal)
CPT/HCPCS: 73630